=== PATIENT | female | born 1990 | race Two or more races ===

== ENCOUNTER 2020-02-21 11:08 | Outpatient (REF) | payer OTHER, SELFPAY | END 2020-02-21 11:09 | disposition home or self-care (01) | LOC: HO.LAB 11:08 | PROVIDERS: Visit Provider Internal Medicine | DX: Z20.828 Contact with and (suspected) exposure to other viral communicable diseases (principal) | CPT/HCPCS: C9803; U0003 ==

== ENCOUNTER 2020-11-15 11:45 | Emergency (ER) | payer OTHER, SELFPAY ==
[2020-11-15 12:00] VITALS: BP 106/64; PULSE 67; RESP 16; TEMP 37.1; O2SAT 98; BMI 26.6
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
== END 2020-11-15 14:33 | disposition home or self-care (01) ==
PROVIDERS: Emergency Provider Emergency Medicine
DX: S39.012A Strain of muscle, fascia and tendon of lower back, initial encounter (principal); V43.52XA Car driver injured in collision with other type car in traffic accident, initial encounter; H61.22 Impacted cerumen, left ear; Y93.89 Activity, other specified; Y92.414 Local residential or business street as the place of occurrence of the external cause; Y99.9 Unspecified external cause status
CPT/HCPCS: 69209; 99283

== ENCOUNTER 2024-12-07 09:53 | Emergency (ER) | payer OTHER, SELFPAY ==
--- NOTE | ~2024-12-07 | US_ITS ---
EXAMINATION: US RETROPERITONEAL LIMITED (RENAL ONLY) CLINICAL INFORMATION: Dark urine. Bilateral flank pain.. COMPARISON: None available. TECHNIQUE: Real-time ultrasound kidneys using grayscale technique. FINDINGS: RIGHT KIDNEY: 9 x 4 x 4 cm (SAG x AP x TRV). Volume: 79 cc. Normal echotexture. Normal renal cortical thickness. No hydronephrosis. No gross solid or cystic lesion. LEFT KIDNEY: 10 x 5 x 5 cm (SAG x AP x TRV). Volume: 134 cc. Normal echotexture. Normal renal cortical thickness. No hydronephrosis. No gross solid or cystic lesion. US/US renal BI IMPRESSION: No hydronephrosis. Normal exam.. Electronically signed by: Jimbo Ortiz MD 12/07/2024 11:58 AM EDT
[2024-12-07 10:02] VITALS: BP 103/68; PULSE 73; RESP 18; TEMP 36.6; O2SAT 98; BMI 28.5
--- NOTE | 2024-12-07 10:40 | ED_ITS ---
HPI - General Adult General Chief complaint: General Medical Stated complaint: Pain R side Time Seen by Provider: 12/07/24 10:13 Source: patient and old records reviewed Mode of arrival: ambulatory Limitations: no limitations History of Present Illness ED Provider: SUSANNE GAN narrative: 33 yo female with no PMH who has been dealing with this vague posterior thoracic back pain that wraps around. She notes she feels a dull pain during the day but at night it wakes her up. She was on abx about 2 weeks ago per UC had UTI they just prescribed her bactrim which she has not taken. She denies travel, uses mirena, no hx of renal colic, VTE. 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 She states it wakes her up and it mostly present at night. MD complaint: back pain, URI Onset (ago): week(s) (3) Location: back Radiation: abdomen Severity: moderate Quality: aching Pain Consistency: intermittent Relieving factors: none Exacerbating factors: none Associated symptoms: cough and other Treatments prior to arrival: none Related Data Previous Rx's ?Medication ?Instructions ?Recorded azithromycin 250 mg tablet See Rx Instructions PO .COM PLEX #6 12/07/24 tabs cephalexin 500 mg capsule 500 mg PO BID 7 days #14 cap s 12/07/24 cyclobenzaprine 10 mg tablet 10 mg PO TID PRN muscle s pasm #14 12/07/24 tabs fluconazole 150 mg tablet 150 mg PO Q3D 2 doses #2 tab s 12/07/24 Allergies Allergy/AdvReac Type Severity Reaction Status Date / Time No Known Allergies Allergy Verified 12/07/24 10:06 Review of Systems 2 Review of Systems: Constitutional : No Fever, No Chills, pos Fatigue ENT/Mouth : No sore throat, No Rhinorrhea Eyes: No Eye Pain, No Swelling, No Redness Cardiovascular : No Chest Pain, No SOB, No Dyspnea on Exertion Respiratory : pos Cough, No Sputum Gastrointestinal : No Nausea, No Vomiting, No Diarrhea, No abdominal Pain Genitourinary : No Dysuria, pos Urinary Frequency, No Hematuria, Musculoskeletal : No joint pain, No Myalgias, No Joint Swelling, pos back pain Skin : No Skin Lesions, No rash Neuro : No Weakness, No Numbness, No Dizziness, positive Headache All other systems reviewed and are negative [facility] Social History Social History Advance Directives: No Advance Directives Information Provided: Yes Do you have a plan to hurt others: No Plan Physical Exam ED Vital Signs: Vital Signs - 24 hr 12/07/24 10:02 12/07/24 12:02 Temperature 98 F Pulse Rate 73 77 Respiratory Rate 18 17 Blood Pressure 103/68 101/64 Pulse Oximetry 98 99 Oxygen Delivery Method Room Air Room Air BMI result Body Mass Index 28.5 Appearance: Alert. Oriented X3. No acute distress. Eyes: Pupils equal, round and reactive to light. ENT: Pharynx normal. Neck: Normal inspection. Neck supple. CVS: Normal heart rate and rhythm. Pulses normal. Respiratory: No respiratory distress. Breath sounds diminished R lower lobe Abdomen: Soft and nontender. Back: ttp along paraspinals bilaterally Skin: Skin warm and dry. Normal skin color. Extremities: No lower extremity edema. Neuro: Oriented X 3. No motor deficit. No sensory deficit. CN2-12 intact Medical Decision Making Medical Decision Making [facility] Narrative: 33 yo female with no PMH here with c/o not feeling great, reported UTI, darker urine , bilateral lower back pain but no fevers, she has some mild URI - she is PERC negative at this time. I canot reproduce her pain. At this time doubt VTE, will obtain UA, labs, CXR for pneumonia/effusion, renal study for stones/hydro. I suspect viral syndrome, strain, renal colic, URI Differential Diagnosis Differential Diagnoses: The differential diagnosis associated with the presentation includes viral syndrome, strain, renal colic, URI Admission/Observation Consideration of admission/observation: Escalation of care including admission/observation considered will start on oral abx and instruct her to return for worsening symptoms or concerns Lab Data [facility] Lab Attestation statement: I reviewed the patient's lab results. 12/07/24 10:54 12/07/24 10:53 Labs: Lab Results 12/07/24 12/07/24 12/07/24 Range/Units 10:53 10:54 12:12 WBC 8.2 (4.8-10.8) X10*3/uL RBC 4.62 (4.20-5.50) X10*6/uL Hgb 14.4 (12.0-16.0) g/dl Hct 41.6 (37.0-47.0) % MCV 90.0 (80.0-98.0) fL MCH 31.2 (27.0-33.0) pg MCHC 34.6 (31.0-35.0) g/dl RDW 12.6 (11.0-16.0) % Plt Count 258 (160-400) X10*3/uL MPV 10.0 (9.4-12.3) fL Immature Gran % (Auto) 0.4 (0.0-0.4) % Neut % (Auto) 60.9 (45-73) % Lymph % (Auto) 30.5 (20-40) % Henry % (Auto) 6.8 (2-11) % Eos % (Auto) 1.0 (0-4) % Baso % (Auto) 0.4 (0-2) % Lymph # (Auto) 2.5 (1.2-4.9) X10*3/uL Henry # (Auto) 0.6 (0.1-1.2) X10*3/uL Eos # (Auto) 0.1 (0.0-0.4) X10*3/uL Baso # (Auto) 0.0 (0.0-0.2) X10*3/uL Abs Immat Gran (auto) 0.03 (0.00-0.03) X10*3/uL Absolute Neuts (auto) 5.0 (2.0-8.3) x10*3/uL Absolute Nucleated RBC 0.000 (0.0-0.012) X10*3/uL Nucleated RBC % (auto) 0.0 (0.0-0.2) /100WBC Sodium 139 (135-145) mmol/L Potassium 4.3 (3.3-5.1) mmol/L Chloride 103 (96-108) mmol/L Carbon Dioxide 30 H (22-29) mmol/L Anion Gap 10 L (12-20) BUN 11 (9-16) mg/dL Creatinine 0.71 (0.5-1.4) mg/dL Estim Creat Clear Calc 128.7 Estimated GFR > 60 Random Glucose 90 (60-115) mg/dL Calcium 9.3 (8.4-10.2) mg/dL Magnesium 2.1 (1.6-2.6) mg/dL Total Bilirubin 0.8 (0.0-1.0) mg/dL AST 22 (5-31) U/L ALT 25 (0-31) U/L Alkaline Phosphatase 71 (39-117) U/L Total Protein 7.8 (6.5-8.0) g/dL Albumin 4.7 (3.5-5.0) g/dL Lipase 29 (8-78) U/L Urine Color Yellow Urine Appearance Clear Urine pH 6.0 (5.0-9.0) Ur Specific [place] 1.015 (1.005-1.025) Urine Protein Negative (Neg-Trace) mg/dL Urine Glucose (UA) Negative (Negative) mg/dL Urine Ketones Negative (Negative) mg/dL Urine Blood Negative (Negative) Urine Nitrite Negative (Negative) Ur Leukocyte Esterase Moderate (2+) H (Negative) Urine RBC 0-2 (0-2) /HPF Urine WBC 6-10 H (0-5) /HPF Ur Squamous Epith Cells 6-10 (0-2) /HPF Urine Bacteria 1+ (None Seen) Hyaline Casts 0-2 (0-2) /LPF Urine Test NEGATIVE (NEGATIVE) Independent Interpretation I performed an independent interpretation of an: Plain X-Ray (RLL opacity) and Ultrasound (normal ) Radiology Impression Discussion of test interpretation with radiology: I have reviewed the radiologist's reading. External Record Review External record reviewed: Outpatient record Prescription Management I considered prescription management with: Antibiotic and Other Discharge Plan Discharge Clinical Impression: Bilateral flank pain CAP (community acquired pneumonia) Qualifiers: Laterality: right Lung location: unspecified part of lung Qualified Code(s): J 18.9 - Pneumonia, unspecified organism Patient Disposition: Home, Self-Care Instructions: Community Acquired Pneumonia (ED), Flank Pain (ED) Additional Instructions: no UTI labs reassuring Ultrasound normal of both kidneys chest xray abnormal - pneumonia noted will start on oral antibiotics - finish all antibiotics, repeat Chest xray in 6 weeks with your doctor for resolution return for any worsening symptoms or concerns On a cephalosporin?antibiotic, softer bowel movements are to be expected. Call your provider if you move your bowels more than 4 times a day, your bowel movements are almost all liquid, or you get a rash.?? On azithromycin, call your provider if you develop new ringing in your ears, new problems hearing, dizziness, palpitations, abdominal pain, nausea, or diarrhea. Prescriptions: New cyclobenzaprine 10 mg tablet 10 mg PO TID PRN (Reason: muscle spasm) Qty: 14 0RF azithromycin 250 mg tablet See Rx Instructions .ROUTE .COMPLEX Qty: 6 0RF Rx Instructions: For 250 mg dose pack: take 500 mg today (day 1), then 250 mg for 4 days (days 2-5) fluconazole 150 mg tablet 150 mg PO Q3D Qty: 2 0RF Rx Instructions: may repeat second dose 72 hrs after first dose if symptoms persist cephalexin 500 mg capsule 500 mg PO BID 7 Days Qty: 14 0RF Stand Alone Forms: Work/School Release Print Language: Serbian
[2024-12-07 11:03] LABS: Hematocrit 41.6 % (37.0-47.0); Hemoglobin 14.4 g/dl (12.0-16.0); Mean Corpuscular Volume 90.0 fL (80.0-98.0); Platelet Count 258 X10*3/uL (160-400); Red Blood Count 4.62 X10*6/uL (4.20-5.50)
[2024-12-07 11:15] LABS: Alanine Aminotransferase 25 U/L (0-31); Albumin Level 4.7 g/dL (3.5-5.0); Alkaline Phosphatase 71 U/L (39-117); Anion Gap 10 (12-20); Aspartate Amino Transferase 22 U/L (5-31); Blood Urea Nitrogen 11 mg/dL (9-16); Calcium 9.3 mg/dL (8.4-10.2); Carbon Dioxide 30 mmol/L (22-29); Chloride 103 mmol/L (96-108); Creatinine Clr Calc Pharmacy 128.7; Estimated Glomerular Filt Rate > 60; Lipase 29 U/L (8-78); Magnesium 2.1 mg/dL (1.6-2.6); Potassium 4.3 mmol/L (3.3-5.1); Sodium 139 mmol/L (135-145); Total Protein 7.8 g/dL (6.5-8.0)
[2024-12-07 12:02] VITALS: BP 101/64; PULSE 77; RESP 17; O2SAT 99
[2024-12-07 12:20] LABS: Appearance Urine Clear; Glucose Urine UA Negative (Negative); PH 6.0 (5.0-9.0); Specific Gravity - Urine 1.015 (1.005-1.025); UMIC TRIGGER UACC YES
[2024-12-07 12:23] LABS: UPreg QC Valid YES
[2024-12-07 12:25] LABS: UACC Culture Trigger YES
--- OUTSIDE RECORDS SUMMARY | 2024-12-07 12:29 | XMS_ITS | Clinical Summary ---
Author Organization [employer] Address [address] [place] [address] Care Team Providers Care Dent Remover Name Role Phone Unavailable Primary Care Provider Unavailabl e Allergies No known active allergies Medications Levonorgestrel 20 MCG/DAY intrauterine device 1 Each by Intrauterine route once. 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 Encounters Date Type Department Care Team Description 10/06/2024 2:00 PM EDT Office Visit [facility] [address] [place] [address] Hui Yuen Dental caries (Primary Dx) 09/29/2024 2:15 PM EDT Office Visit [facility] [address] [place] [address] Hui Yuen Dental caries (Primary Dx); Gingival bleeding; Dental plaque; Missing teeth, acquired 09/24/2024 9:00 AM EDT Office Visit [facility] [address] [place] [address] Hui Yuen 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) 09/21/2024 1:00 PM EDT Office Visit [facility] [address] [place] [address] Domingo Javier DMD from Last 3 Months Social History Tobacco Use Types Packs/Day Years Used Date Smoking Tobacco: Never Smokeless Tobacco: Never Tobacco Cessation:Counseling Given: Not Answered Alcohol Use Standard Drinks/Week Comments Defer 0 (1 standard drink = 0.6 oz pur e alcohol) Comments Unknown Sex and Gender Information Value Date Recorded Sex Assigned at Female 01/14/2022 10:22 AM EDT Legal Sex Female 10:22 AM EDT Gender Identity Female 01/14/2022 10:22 AM EDT Sexual Orientation Straight 01/14/2022 10 :22 AM EDT Last Filed Vital Signs Vital Sign Reading Time Taken Comments Blood Pressure 92/62 10/06/2024 2:34 PM EDT Pulse 68 09/24/2024 9:22 AM EDT Temperature - - Respiratory Rate - - Oxygen Saturation - - Inhaled Oxygen Concentration - - Weight - - Height - - Body Mass Index - - Plan of Treatment Health Maintenance Due Date Last Done Comments Depression Screening 1990 HIV Screening 1990 SDOH Screening 1990 Disability Screening 1990 Alcohol/Substance Use Screening 2002 Family Planning (PISQ) 2005 Hepatitis C Screening 2008 Pap Smear 12/27/2011 Cervical Cancer Screening 2020 HPV/Cotest 2020 COVID-19 Vaccine ( season) 2024 Influenza Vaccine (#1) 2024 7, 03/08/2009, 03/08/2009 Dental Oral Exam 04/02/2025 09/29/2024, 08/18/2015 Dental Prophylaxis 04/02/2025 09/29/2024 Dental X-Ray: Bitewings 09/30/2025 09/30/19 25, 09/21/2024, 11/17/2018, Additional history exists Tobacco Screening 10/06/2025 10/06/2024 DTaP/Tdap/Td Vaccines (8 - Td or Tdap) 03/26/2027 03/26/2017, 06/16/2008, 03/22/2002, Additional history exists Dental X-Ray: Full Mouth 10/01/2027 025, 11/17/2018, 08/18/2015 Zoster Vaccines (1 of 2) 2040 RSV Patients and Patients Aged 60 years or older (1 - 1-dose 75+ series) 2065 HIB Vaccines Completed 04/05/1992, 06/16, 05/10/1991, Additional history exists IPV Vaccines Completed 07/08/1995, 09/15, 04/05/1992, Additional history exists Hepatitis B Vaccines Completed 09/05/1997, 07/08/1995, 02/03/1995 Meningococcal Vaccine Completed 06/16/2008 HPV Vaccines Completed 10/17/2008, 04/2008, 05/01/2007 Hepatitis A Vaccines Aged Out No long er eligible based on patient's age to complete this topic Meningococcal B Vaccine Aged Out No l onger eligible based on patient's age to complete this topic Pneumococcal Vaccine: Pediatrics (0 to 5 Years) and At-Risk Patients (6 to 49) Years Aged Out No longer eligible based on patient's age to complete this topic RSV under 20 months Aged Out No longe r eligible based on patient's age to complete this topic Rotavirus Vaccines Aged Out No longer eligible based on patient's age to complete this topic Procedures Procedure Name Priority Date/Time Associated Diagnosis Comments CASE PRESENTATION, DETAILED AND EXTENSIVE TREATMENT PLANNING Routine 10/06/2024 2:00 PM EDT 2 O RESIN-BASED COMPOSITE - 1 SURF, POSTERIOR Routine 10/06/2024 2:00 PM EDT Dental caries INTRAORAL - COMPLETE SERIES OF RADIOGRAPHIC IMAGES Routine 09/29/2024 2:15 PM EDT CASE PRESENTATION, DETAILED AND EXTENSIVE TREATMENT PLANNING Routine 09/29/2024 2:15 PM EDT ORAL HYGIENE INSTRUCTIONS Routine 09/29/2024 2:15 PM EDT Full PROPHYLAXIS - ADULT Routine 09/29/2024 2:15 PM EDT PERIODIC ORAL EVALUATION - ESTABLISHED PATIENT Routine 09/29/2024 2:15 PM EDT Dental caries Gingival bleeding Dental plaque Missing teeth, acquired 15 O COMPOSITE FILLING Routine 12:00 AM EDT CASE PRESENTATION, DETAILED AND EXTENSIVE TREATMENT PLANNING Routine 09/24/2024 9:00 AM EDT 19 DO RESIN-BASED COMPOSITE - 2 SURF, POSTERIOR Routine 09/24/2024 9:00 AM EDT 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
--- OUTSIDE RECORDS SUMMARY | 2024-12-07 12:29 | XMS_ITS ---
Author Name [facility] Organization Unknown Care Team Organization Name Specialty Phone Email Start Date End Da te [facility] JACOB CORAZON Primary Care 01/22/2022 4
--- OUTSIDE RECORDS SUMMARY | 2024-12-07 12:29 | XMS_ITS | Clinical Summary ---
Author Organization [facility] [address] [place] [address] [place] [phone] Phone Care Team Providers Care Auto Transmission Technician Name Role Phone Abi Cronin MD Primary Care Provider [phone] Allergies No known active allergies Medications levonorgestreL (MIRENA) 21 mcg/24hr (up to 8 yrs) 52 mg IUD 1 Each by Intrauterine route once. 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 Immunizations Name Administration Dates Next Due DTP 07/08/1995, 3,07/09/1991,05/10,03/08/1991 [id number] (Pentacel) 2mo to less than 5yo 04/05/1992,07/09/1991,05/10/1991,03/08 H1N1 Inj Preservative Free 03/08/2009 HPV, Quadrivalent 10/17/2008,06/16/2008,05/01/19 08 Hepatitis B Pediatric (Enger ix B; Recombivax HB) to less than 20 yo 09/05/1997,07/08/1995,02/03/1995 Influenza Quadravalent, MDCK , 0.5ml, preservative free (Flucelvax) 6mo and older 2016 Influenza trivalent, with pr eservative (Fluzone; Afluria) 6mo and older 03/08/2009,03/08/2009 MMR, measles mumps and rubel la Live (Priorix; M-M-R II) 12mo and older 02/03/1995,04/05/1992 Meningococcal MCV4P 06/16/2008 OPV 07/08/1995, 3,05/10/1991,03/08 Td Tetanus diptheria (Tdvax) 7yo and older 03/22/2002 Tdap Tetanus diptheria acell ular pertussis (Boostrix; Adacel) 7yo and older 03/26/2017,06/16/2008 Surgical History Surgery Date Site/Laterality Comments APPENDECTOMY 09/1994 PROCEDURE: HISTORICAL APPENDECTOMY Medical History Medical History Date Comments Acute suppurative otitis med ia without spontaneous rupture of eardrum DX:Acute suppurative otitis media without spontaneous rupture of eardrum Flu DX:Flu Varicella DX:Varicella Menarche onset at 12 yo DX:Menarche; COM MENT: -1; EDC 02/26/11 Family History Medical History Relation Name Comments No Known Problems Brother 1 half broth er from mother No Known Problems Brother 2 half broth er from fathers side No Known Problems Brother 3 half broth er from fathers side No Known Problems Brother 4 half broth er from fathers side No Known Problems Brother 5 half broth er from fathers side No Known Problems Brother 6 half broth er from fathers side No Known Problems Father No Known Problems Maternal Grandfather pt not sure of health hx, states ?heart problems Diabetes Maternal Grandmother pt stat es shes sick doesnt know what other health problems she has Hypertension Maternal Grandmother No Known Problems Mother No Known Problems Paternal Grandfather he alth hx not known Other: heart problems Paternal Grandmother hx not well known No Known Problems Sister half siste r from fathers side Relation Name Status Comments Brother 1 Alive Brother 2 Alive Brother 3 Alive Brother 4 Alive Brother 5 Alive Brother 6 Alive Father Alive Maternal Grandfather Alive Maternal Grandmother Alive Mother Alive Paternal Grandfather Paternal Grandmother Alive Sister Alive Social History Tobacco Use Types Packs/Day Years Used Date Smoking Tobacco: Never Smokeless Tobacco: Never Alcohol Use Standard Drinks/Week Comments Yes 0 (1 standard drink = 0.6 oz pur e alcohol) Comments Unknown Sex and Gender Information Value Date Recorded Sex Assigned at Not on file Legal Sex Female 10:48 PM EST Gender Identity Not on file Sexual Orientation Not on file Obstetrics History Last Filed Vital Signs Vital Sign Reading Time Taken Comments Blood Pressure 116/72 08/04/2023 4:54 PM EDT Pulse 121 08/04/2023 4:54 PM EDT Temperature - - Respiratory Rate - - Oxygen Saturation - - Inhaled Oxygen Concentration - - Weight 81.5 kg (179 lb 9.6 oz) 08/04/2023 4:54 P M EDT Height 172.7 cm (5' 8 ) 08/04/2023 4:54 PM EDT Body Mass Index 27.31 08/04/2023 4:54 PM EDT Plan of Treatment Health Maintenance Due Date Last Done Comments Cervical Cancer Screening: Pap Smear 10/02/2019 10/01/2016, 10/01/2016 Hepatitis C Screening 02/17/2022 Social Influencers of Health Screening 02/17/2022 Depression Screening 03/17/2024 COVID-19 Vaccine ( season) 2024 02/27/2021, 02/06/2021 Influenza Vaccine (#1) 2024 7, 03/08/2009, 03/08/2009, Additional history exists DTaP,Tdap,and Td Vaccines (9 - Td or Tdap) 03/26/2027 03/26/2017, 06/16/2008, 03/22/2002, Additional history exists HIB Vaccines Completed 04/05/1992, 06/16, 05/10/1991, Additional history exists MMR Vaccines Completed 02/03/1995, 04/05/1992 IPV Vaccines Completed 07/08/1995, 09/15, 04/05/1992, Additional history exists Hepatitis B Vaccines Completed 09/05/1997, 07/08/1995, 02/03/1995 Meningococcal ACWY Vaccine Completed 06/16/2008 HPV Vaccines Completed 10/17/2008, 04/2008, 05/01/2007 HIV Screening Completed 09/24/2016 Hepatitis A Vaccines Aged Out No long er eligible based on patient's age to complete this topic Meningococcal B Vaccine Aged Out No l onger eligible based on patient's age to complete this topic Pneumococcal Vaccine: Pediatrics (0 to 5 Years) and At-Risk Patients (6 to 49 Years) Aged Out No longer eligible based on patient's age to complete this topic RSV Immunization Patients Under 20 months Aged Out No longer eligible based on patient's age to complete this topic Varicella Vaccines Aged Out No longer eligible based on patient's age to complete this topic Procedures Procedure Name Priority Date/Time Associated Diagnosis Comments HPV Routine 10/01/2016 HIV SCREENING Routine 09/24/2016 from Last 3 Months or Most Recently Relevant to Health Maintenance Results * Cervical Cancer Screening: HPV (10/01/2016) Cervical Cancer Screening: HPV No interpretation , Abstracted us Historical Provider HEALTH MAINTENANCE Final Result * HIV Screening (09/24/2016) Pathologist [facility] HIV Screening Abstracted us Historical Provider HEALTH MAINTENANCE Final Result from Last 3 Months or Most Recently Relevant to Health Maintenance Care Teams Auto Transmission Technician Relationship Specialty Start Date End Date Abi Cronin MD [address] [place] [phone] PCP - General Internal Medicine 11/02/20
[2024-12-07 12:45] VITALS: BP 101/64; PULSE 77; RESP 17; TEMP 37.1; O2SAT 99
== END 2024-12-07 12:46 | disposition home or self-care (01) ==
PROVIDERS: Physician Assistant Medical; Emergency Provider Emergency Medicine
DX: J18.9 Pneumonia, unspecified organism (principal); R10.2 Pelvic and perineal pain; R05.9 Cough, unspecified; Z79.899 Other long term (current) drug therapy
CPT/HCPCS: 36415; 71046; 76775; 80053; 81001; 81025; 83690; 83735; 85025; 87086; 99283; 99284

== ENCOUNTER → 2024-12-07 10:35 | Outpatient (BNV) | payer OTHER, SELFPAY | PROVIDERS: Emergency Provider Emergency Medicine; Visit Provider Radiology Diagnostic Radiology | DX: R10.9 Unspecified abdominal pain (principal); R82.998 Other abnormal findings in urine; R05.9 Cough, unspecified | CPT/HCPCS: 71046; 76775 ==

== ENCOUNTER 2024-12-09 18:18 | Inpatient (IN) | payer OTHER, SELFPAY ==
--- NOTE | 2024-12-09 | ECG_ITS ---
Test Reason : cp Blood Pressure : */* mmHG Vent. Rate : 85 BPM Atrial Rate : 85 BPM P-R Int : 138 ms QRS Dur : 74 ms QT Int : 356 ms P-R-T Axes : 33 -5 -8 degrees QTcB Int : 423 ms Normal sinus rhythm Septal infarct , age undetermined Abnormal ECG No previous ECGs available Referred By: Generic ED Physician Electronically Signed By: Shashank Nelson
--- NOTE | ~2024-12-09 | US_ITS ---
CLINICAL HISTORY: cholecystitis US abdomen limited Comparison: None provided Findings: The liver is incompletely visualized on this examination. The visualized portion of the liver appears normal in contour and echotexture. No intrahepatic biliary dilation identified. The common duct is 3.2 mm in diameter. The gallbladder is normal. The main portal vein is antegrade. The right kidney is incompletely visualized on this examination. No right hydronephrosis identified on the provided images. No ascites. IMPRESSION: 1. No sonographic evidence for acute cholecystitis. This document has been electronically signed by: Jason Carrillo MD on 12/09/2024 23:05:37
--- NOTE | ~2024-12-09 | CT_ITS ---
CLINICAL HISTORY: PE CT angiography chest using contrast. 3-D postprocessing Comparison: CR/SR - XR CHEST 2 VIEWS - 12/07/24 10:51 EDT Findings: No pulmonary embolism. No thoracic aorta aneurysm. Heart size within normal limits. No focal pulmonary consolidation, pneumothorax, or pleural effusion. No acute fractures. Impression: 1. Negative for pulmonary embolism. No focal pulmonary consolidation, pneumothorax, or pleural effusion. This document has been electronically signed by: Jason Carrillo MD on 12/10/2024 00:05:20
--- NOTE | ~2024-12-09 | FL_ITS ---
EXAMINATION: FL GUIDANCE ONLY HISTORY: ERCP COMPARISON: Correlation is made with a CT of the abdomen with contrast dated 12/09/2024. TECHNIQUE: Fluoroscopy time: 6 minutes, 21.7 seconds. Cumulative Dose: 7 7.923 mGy. DAP: 3 3.896 Gym2 Images: 7. FINDINGS: Multiple fluoroscopic spot films from an ERCP are submitted. The common bile duct is not dilated. The visualized biliary radicals are normal in caliber. No definite filling defects are seen on the images provided. FL/FL guidance in OR IMPRESSION: Fluoroscopy during procedure. Please see procedure report for additional information. Electronically signed by: Elbert Andrade MD 12/10/2024 02:31 PM EDT
--- NOTE | ~2024-12-09 | CT_ITS ---
CLINICAL HISTORY: transaminitis CT abdomen and pelvis with contrast Comparison: Comparison is made to gallbladder ultrasound examination dated 12/09/2024. Findings: Small gallstones are visualized within the gallbladder lumen. No CT evidence for acute cholecystitis. A radiopaque calculus is identified near the ampulla, visualized on coronal image number 35 of series 19. The solid organs are within normal limits for appearance. No significant intrahepatic or extrahepatic biliary dilation identified. No hydronephrosis or hydroureter. No bowel obstruction, pneumoperitoneum, or pneumatosis. Radiopaque T-shaped intrauterine device in place. No bladder wall thickening. Nonvisualization of the appendix. No acute fracture visualized. IMPRESSION: 1. Calculus visualized near the ampulla, suggesting choledocholithiasis. No significant intrahepatic or extrahepatic biliary dilation identified. 2. Small gallstones present within the gallbladder lumen. No CT evidence for acute cholecystitis. This document has been electronically signed by: Jason Carrillo MD on 12/09/2024 23:59:29
--- NOTE | 2024-12-09 18:32 | ED.GENADULT ---
HPI - General Adult General Chief complaint: General Medical Stated complaint: cp (pneumonia) Time Seen by Provider: 12/09/24 21:17 Related Data Home Medications ?Medication ?Instructions ?Recorded ?Confirmed No Known Home Meds 12/10/24 12/10/24 Allergies Allergy/AdvReac Type Severity Reaction Status Date / Time No Known Allergies Allergy Verified 12/09/24 18:39 [facility] Past Medical History Surgical History (Updated 12/10/24 @ 10:30 by Yasemin Leggett RN) Hx of appendectomy History of ERCP Social History Social History Household Members: Significant Other and Children Housing: House Patient Tobacco Use Status: Never used Tobacco Smoked in Last 30 Days: No Use of substances other than those prescribed or required for medical reasons: No Currently Displaying Signs/Symptoms of Drug Intoxication Withdrawal: No Have you been hit, kicked, punched, or otherwise hurt by someone within the past year? If so, by whom?: No Are you DNR?: No Advance Directives: No Advance Directives Information Provided: No Do you have a plan to hurt others: No Plan Recently lost weight without trying: Unsure Patient : No service: No Physical Exam ED Vital Signs: Vital Signs - 24 hr 12/09/24 22:41 12/10/24 01:48 Temperature 97.9 F Pulse Rate 86 63 Respiratory Rate 20 16 Blood Pressure 110/74 103/64 Pulse Oximetry 97 99 Oxygen Delivery Method Room Air Room Air BMI result Body Mass Index 29.1 Course Course Course Narrative: This is an RME: Additional HPI, ROS, PE not included below will be deferred to primary provider. RME assessment and note performed by: Abby Lees PA-C This is a [id number]-female who presents to the ER accompanied by her , with concerns of shortness of breath and pleuritic CP Reports that she was seen on 12/07 was told she had pneumonia. Had an asthma attack later on that day and went to [facility]. Reports that she went to her PCP. Reports that her PCP sent her for a CT scan. No cough or fevers. Has mirena, no recent travel, surgeries or hospitalizations. Plan: Labs, further ER eval needed > duplicate chart. Medications Administered Generic Name Dose Route Start Last Admin Trade Name Freq PRN Reason Stop Dose Admin Acetaminophen 650 mg 12/10/24 01:49 12/10/24 17:28 Acetaminophen 325 Mg Tablet PO 650 mg Q6H PRN Administration Pain, Mild 1-3,fever,headache Ceftriaxone Sodium 1 gm 12/10/24 02:00 12/10/24 02:25 Ceftriaxone Sodium 1 Gm Vial IVPUSH 1 gm Q24H ARNULFO Administration Dextrose/Sodium Chloride 1,000 mls @ 100 mls/hr 12/10/24 02:00 12/10/24 14:53 D5ns IVCONT 100 mls/hr .Q10H ARNULFO Administration Metronidazole 500 mg in 100 mls @ 100 mls/hr 12/10/24 02:00 12/10/24 18:29 Flagyl IV Infused Q8H ARNULFO Infusion Sodium Chloride 3 ml 12/10/24 08:00 12/10/24 17:03 0.9 % Sodium Chloride Flush 3 Ml Syringe IVFLUSH 3 ml QSHIFT ARNULFO Administration Discontinued Medications Generic Name Dose Route Start Last Admin Trade Name Freq PRN Reason Stop Dose Admin Enoxaparin Sodium 40 mg 12/10/24 02:00 12/10/24 02:31 Enoxaparin Sodium 40 Mg/0.4 Ml Syringe SUBCUT Not Given Q24H ARNULFO Indomethacin 100 mg 12/10/24 12:00 12/10/24 14:44 Indomethacin 50 Mg Supp.Rect MS 12/10/24 12:01 Not Given PRE PROCEDURE ONE Iohexol 85 ml 12/09/24 22:38 12/09/24 22:38 Iohexol 350 Mg/Ml 100 Ml Infus..Btl IV 12/09/24 22:39 85 ml ONCE ONE Administration Medical Decision Making Lab Data 12/10/24 04:42 12/10/24 04:42 Labs: Lab Results 12/09/24 Range/Units 19:04 WBC 9.0 (4.8-10.8) X10*3/uL RBC 4.71 (4.20-5.50) X10*6/uL Hgb 14.4 (12.0-16.0) g/dl Hct 42.6 (37.0-47.0) % MCV 90.4 (80.0-98.0) fL MCH 30.6 (27.0-33.0) pg MCHC 33.8 (31.0-35.0) g/dl RDW 12.8 (11.0-16.0) % Plt Count 270 (160-400) X10*3/uL MPV 10.0 (9.4-12.3) fL Immature Gran % (Auto) 0.4 (0.0-0.4) % Neut % (Auto) 64.8 (45-73) % Lymph % (Auto) 25.0 (20-40) % [place] % (Auto) 7.5 (2-11) % Eos % (Auto) 1.9 (0-4) % Baso % (Auto) 0.4 (0-2) % Lymph # (Auto) 2.3 (1.2-4.9) X10*3/uL [place] # (Auto) 0.7 (0.1-1.2) X10*3/uL Eos # (Auto) 0.2 (0.0-0.4) X10*3/uL Baso # (Auto) 0.0 (0.0-0.2) X10*3/uL Abs Immat Gran (auto) 0.04 H (0.00-0.03) X10*3/uL Absolute Neuts (auto) 5.9 (2.0-8.3) x10*3/uL Absolute Nucleated RBC 0.000 (0.0-0.012) X10*3/uL Nucleated RBC % (auto) 0.0 (0.0-0.2) /100WBC Sodium 142 (135-145) mmol/L Potassium 4.1 (3.3-5.1) mmol/L Chloride 104 (96-108) mmol/L Carbon Dioxide 29 (22-29) mmol/L Anion Gap 13 (12-20) BUN 9 (9-16) mg/dL Creatinine 0.68 (0.5-1.4) mg/dL Estim Creat Clear Calc 135.7 Estimated GFR > 60 Random Glucose 90 (60-115) mg/dL Calcium 9.3 (8.4-10.2) mg/dL Total Bilirubin 0.8 (0.0-1.0) mg/dL Direct Bilirubin 0.3 (0.0-0.5) mg/dL AST 400 H (5-31) U/L ALT 597 H (0-31) U/L Alkaline Phosphatase 143 H (39-117) U/L Total Protein 7.4 (6.5-8.0) g/dL Albumin 4.6 (3.5-5.0) g/dL Lipase 39 (8-78) U/L Beta HCG, Quant < 2 mIU/mL COVID-19 (MADELINE) Negative (Negative) COVID-19 Clin Com See Note Influenza Type A (EMILY) Negative (Negative) Influenza Type B (EMILY) Negative (Negative) Influenza A & B Note See Note Discharge Plan Discharge Clinical Impression: Choledocholithiasis Patient Disposition: Admitted As Inpatient Interventions: Admission Worksheet (ED) Last Done: 12/10/24 08:01 Discharge Date/Time: 12/10/24 08:27
[2024-12-09 18:33] VITALS: BP 123/73; PULSE 94; RESP 18; TEMP 36.8; O2SAT 96; BMI 29.1
[2024-12-09 19:09] LABS: MANUAL DIFF FLAG NO
[2024-12-09 19:15] LABS: Hematocrit 42.6 % (37.0-47.0); Hemoglobin 14.4 g/dl (12.0-16.0); Imm Gran Abs Auto 0.04 X10*3/uL (0.00-0.03); Imm Gran Pct Auto 0.4 % (0.0-0.4); Lymphocytes Absolute Auto 2.3 X10*3/uL (1.2-4.9); Mean Corpuscular HGB Conc 33.8 g/dl (31.0-35.0); Mean Corpuscular Hemoglobin 30.6 pg (27.0-33.0); Mean Corpuscular Volume 90.4 fL (80.0-98.0); NRBC Abs Auto 0.000 X10*3/uL (0.0-0.012); NRBC Pct Auto 0.0 /100WBC (0.0-0.2); Platelet Count 270 X10*3/uL (160-400); Red Blood Count 4.71 X10*6/uL (4.20-5.50); White Blood Count 9.0 X10*3/uL (4.8-10.8)
[2024-12-09 19:23] LABS: COVID-19 Test Negative (Negative); IDNOW Serial# 08D9AD1C
[2024-12-09 19:24] LABS: IDNOW Serial# 58CA691E; Influenza B2 Negative (Negative)
[2024-12-09 19:28] LABS: Alanine Aminotransferase 597 U/L (0-31); Albumin Level 4.6 g/dL (3.5-5.0); Alkaline Phosphatase 143 U/L (39-117); Anion Gap 13 (12-20); Aspartate Amino Transferase 400 U/L (5-31); Blood Urea Nitrogen 9 mg/dL (9-16); Calcium 9.3 mg/dL (8.4-10.2); Carbon Dioxide 29 mmol/L (22-29); Chloride 104 mmol/L (96-108); Creatinine Clr Calc Pharmacy 135.7; Estimated Glomerular Filt Rate > 60; Potassium 4.1 mmol/L (3.3-5.1); Sodium 142 mmol/L (135-145); Total Protein 7.4 g/dL (6.5-8.0)
--- OUTSIDE RECORDS SUMMARY | 2024-12-09 21:11 | XMS_ITS | Clinical Summary ---
Author Organization [facility] [address] [place] [address] [place] [address] Phone Care Team Providers Care Web Portal Developer Name Role Phone Abi Cronin MD Primary Care Provider [phone] Allergies No known active allergies Medications levonorgestreL (MIRENA) 21 mcg/24hr (up to 8 yrs) 52 mg IUD 1 Each by Intrauterine route once. 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 Encounters Date Type Department Care Team Description 12/09/2024 4:30 PM EDT Office Visit Adult Medicine [address] [phone] Yessica Saldivar PA Pneumonia of right middle lobe due to infectious organism (Primary Dx); Chest pain, unspecified type; Shortness of breath 12/08/2024 Telephone Adult Medicine [address] [phone] Abi Cronin MD from Last 3 Months Immunizations Name Administration Dates Next Due DTP 07/08/1995, 3,07/09/1991,05/10,03/08/1991 [id number] (Pentacel) 2mo to less than 5yo 04/05/1992,07/09/1991,05/10/1991,03/08 [...] Not Answered Alcohol Use Standard Drinks/Week Comments Yes 0 (1 standard drink = 0.6 oz pur e alcohol) Comments Unknown Sex and Gender Information Value Date Recorded Sex Assigned at Not on file Legal Sex Female 10:48 PM EST Gender Identity Not on file Sexual Orientation Not on file Obstetrics History Last Filed Vital Signs Vital Sign Reading Time Taken Comments Blood Pressure 90/56 12/09/2024 4:38 PM EDT Pulse 94 12/09/2024 4:38 PM EDT Temperature 36.1 C (97 F) 12/09/2024 4:38 PM EDT Respiratory Rate 16 12/09/2024 4:38 PM EDT Oxygen Saturation - - Inhaled Oxygen Concentration - - Weight 86.6 kg (191 lb) 12/09/2024 4:38 PM EDT Height 174 cm (5' 8.5 ) 12/09/2024 4:38 PM EDT Body Mass Index 28.62 12/09/2024 4:38 PM EDT Plan of Treatment Health Maintenance [...] 03/26/2027 03/26/2017, 06/16/2008, 03/22/2002, Additional history exists RSV Immunization Adult Patients (1 - 1-dose 75+ series) 2065 HIB [...] Results * Cervical Cancer Screening: HPV (10/01/2016) Pathologist [facility] Cervical Cancer Screening: HPV No interpretation , Abstracted [facility] Provider HEALTH MAINTENANCE Final Result * HIV Screening (09/24/2016) [facility] HIV Screening Abstracted [facility] Provider HEALTH MAINTENANCE Final Result from Last 3 Months or Most Recently Relevant to Health Maintenance Insurance MEDICAID - [place] Care Teams Web Portal Developer Relationship Specialty Start Date End Date Abi Cronin MD [address] [place] [address] PCP - General Internal Medicine 11/02/20
--- OUTSIDE RECORDS SUMMARY | 2024-12-09 21:11 | XMS_ITS | Clinical Summary ---
Author Organization [employer] Address [address] [place] [address] Care Team Providers Care Associate Dean Name Role Phone Unavailable Primary Care Provider Unavailabl e Allergies No known active allergies Medications Levonorgestrel 20 MCG/DAY intrauterine device 1 Each by Intrauterine route once. 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
--- OUTSIDE RECORDS SUMMARY | 2024-12-09 21:12 | XMS_ITS | Encounter Summary ---
Author Organization [facility] Address [address] [place] [address] Care Team Providers Care Director Metabolism Name Role Phone Abi Cronin MD Primary Care Provider [phone] Reason for Visit * Reason Onset Date Comments Cough 12/08/2024 Shortness of Breath 12/08/2024 Encounter Details Date Type Department Care Team (Late st Contact Info) Description 12/08/2024 Telephone Adult Medicine [facility] [address] [place] [address] Abi Cronin MD [address] [place], [place] Social History Tobacco Use Types Packs/Day Years Used Date Smoking Tobacco: Never Smokeless Tobacco: Never Alcohol Use Standard Drinks/Week Comments Yes 0 (1 standard drink = 0.6 oz pur e alcohol) Comments Unknown Sex and Gender Information Value Date Recorded Sex Assigned at Not on file Legal Sex Female 10:48 PM EST Gender Identity Not on file Sexual Orientation Not on file documented as of this encounter Progress Notes * Josette Scales RN - 12/08/2024 10:13 AM EDT An appointment was made for her to be seen in the office tomorrow at 4:30 pm with Yessica Saldivar and she is in agreement with this plan. She was instructed to go to the ER if she develops any new or worsening symptoms including but not limited to chest pain and or shortness of breath. * Nicole Nelson - 12/08/2024 9:22 AM EDT Patient call requires triage: Symptoms patient is presenting: Patient was diagnosed with Pneumonia and had a really bad attack last night to where she can't breath and her chest feels like its going to explode. She states that this normally happens at night and she's scared its going to happen again. She did start taking the antibiotics. How long has patient had these symptoms?: 1 month For ALL patients calling to schedule any appointment (routine, sick visit, follow up, consult, etc.) in the outpatient setting please ask the following questions: Do you have fever of higher than 101, sore throat with difficulty swallowing or severe shortness ofbreath? no If YES to any of these above symptoms, send a message to triage and do not book. Red dot. If no, an audio or video visit should be booked. Have you had close contact with someone with Coronavirus in the last 14 days? no Have you traveled abroad? no Have you traveled recently to another state outside of [place], [place], [place], [place], [place], [place], [place]? no o If yes, did you quarantine for 14 days or have a negative covid test? no If yes to any of the above, patient is not to be scheduled in office until after 14 day quarantine or negative covid test. If pain or injury related was it due to an accident at work or from a motor vehicle accident? If yes, date of accident/Injury: No If yes, gather 3rd libertarian insurance information Third Constitution Party Information: not applicable PCP: Abi Cronin MD Payor: / No coverage found. documented in this encounter Plan of Treatment Not on file documented as of this encounter Visit Diagnoses Not on filedocumented in this encounter Care Teams Director Metabolism Relationship Specialty Start Date End Date Abi Cronin MD [address] [place] [address] PCP - General Internal Medicine 11/02/20 documented as of this encounter
--- NOTE | 2024-12-09 21:37 | ED_ITS ---
HPI - General Adult General Chief complaint: General Medical Stated complaint: cp (pneumonia) Time Seen by Provider: 12/09/24 21:17 Source: patient Mode of arrival: ambulatory Limitations: no limitations History of Present Illness ED Provider: Dr. Winston [facility] narrative: 33-year-old female presented hospital today for right upper quadrant pain left upper quadrant pain that radiates into her chest. Patient stated that she was recently diagnosed here with pneumonia on Friday. She went to [facility] on Friday night for nausea and vomiting. She states she started having chest pain where she can not breathe. The patient was sent to the ER for evaluation of a CAT scan by her PCP. Patient denies any coughing denies any productive sputum. Denies any shortness of breath. Clinically she does not have pneumonia. Related Data Previous Rx's ?Medication ?Instructions ?Recorded azithromycin 250 mg tablet See Rx Instructions PO .COM PLEX #6 12/07/24 tabs cephalexin 500 mg capsule 500 mg PO BID 7 days #14 cap s 12/07/24 cyclobenzaprine 10 mg tablet 10 mg PO TID PRN muscle s pasm #14 12/07/24 tabs fluconazole 150 mg tablet 150 mg PO Q3D 2 doses #2 tab s 12/07/24 Allergies Allergy/AdvReac Type Severity Reaction Status Date / Time No Known Allergies Allergy Verified 12/09/24 18:39 Review of Systems 2 Review of Systems: Pertinent review of systems as mentioned in HPI. All other system otherwise negative. [facility] Past Medical History [facility] Narrative: Medical history as mentioned in HPI Social History Social History Smoked in Last 30 Days: No Use of substances other than those prescribed or required for medical reasons: No Advance Directives: No Advance Directives Information Provided: No Do you have a plan to hurt others: No Plan Physical Exam ED Exam Exam: General: Pleasant, no distress, interacting appropriately Head: Normacephalic, atraumatic ENT: oral mucosa moist, neck supple, no tracheal deviation Cardiovascular: regular rate, regular rhythm, no murmurs, rubbing, gallops Respiratory: CTAB, no wheeze, rales, rhonchi Gastrointestinal: Soft, non distended, right upper quadrant tenderness on palpation epigastric tenderness on palpation Extremities: No limb pain or swelling, no calf tenderness Neurological: Awake and alert, no facial droop noted Skin: Warm and dry Psychiatric: Appropriate mood and thoughts Vital Signs: Vital Signs - 24 hr 12/09/24 18:33 12/09/24 22:41 Temperature 98.3 F Pulse Rate 94 86 Respiratory Rate 18 20 Blood Pressure 123/73 110/74 Pulse Oximetry 96 97 Oxygen Delivery Method Room Air Room Air BMI result Body Mass Index 29.1 Medications Administered Discontinued Medications Generic Name Dose Route Start Last Admin Trade Name Humberto PRN Reason Stop Dose Admin Iohexol 85 ml 12/09/24 22:38 12/09/24 22:38 Iohexol 350 Mg/Ml 100 Ml Infus..Btl IV 12/09/24 22:39 85 ml ONCE ONE Administration Medical Decision Making Medical Decision Making [facility] Narrative: 33-year-old female presented hospital today for colicky pain. I suspect patient likely has gallstones based on her symptoms of nausea and vomiting does intermittent in nature. Patient is currently asymptomatic at this time. Patient stated that when the pain occurs she was hunched over in pain and she can not breathe. I do not think patient has pneumonia based on her clinical presentation. However given her symptoms we will obtain a CT chest and abdomen and pelvis. Per her PCP recommendation. Ultrasound will be obtained to assess for any signs of dilated CBD versus gallstone. Patient's CT chest did not show any sign of pneumonia did not show any signs of PE. Patient's abdomen and pelvis did show signs of choledocholithiasis with gallstone in her gallbladder. Patient's ultrasound did not show any sign of cholecystitis. No dilation of the CBD. Patient's lab work significant for transaminitis with elevated alk-phos. Lipase level is normal. Discussed the case with Dr. Hines the GI doctor. Recommends admission for ERCP. Differential Diagnosis Differential Diagnoses: The differential diagnosis associated with the presentation includes Choledocholithiasis, gallstone, biliary colic, cholecystitis, PE Consult Healthcare Provider Management of the patient was discussed with: Testing Specialist (Dr. Hines) Lab Data [facility] Lab Attestation statement: I reviewed the patient's lab results. 12/09/24 19:04 12/09/24 19:04 Labs: Lab Results 12/09/24 Range/Units 19:04 WBC 9.0 (4.8-10.8) X10*3/uL RBC 4.71 (4.20-5.50) X10*6/uL Hgb 14.4 (12.0-16.0) g/dl Hct 42.6 (37.0-47.0) % MCV 90.4 (80.0-98.0) fL MCH 30.6 (27.0-33.0) pg MCHC 33.8 (31.0-35.0) g/dl RDW 12.8 (11.0-16.0) % Plt Count 270 (160-400) X10*3/uL MPV 10.0 (9.4-12.3) fL Immature Gran % (Auto) 0.4 (0.0-0.4) % Neut % (Auto) 64.8 (45-73) % Lymph % (Auto) 25.0 (20-40) % [place] % (Auto) 7.5 (2-11) % Eos % (Auto) 1.9 (0-4) % Baso % (Auto) 0.4 (0-2) % Lymph # (Auto) 2.3 (1.2-4.9) X10*3/uL [place] # (Auto) 0.7 (0.1-1.2) X10*3/uL Eos # (Auto) 0.2 (0.0-0.4) X10*3/uL Baso # (Auto) 0.0 (0.0-0.2) X10*3/uL Abs Immat Gran (auto) 0.04 H (0.00-0.03) X10*3/uL Absolute Neuts (auto) 5.9 (2.0-8.3) x10*3/uL Absolute Nucleated RBC 0.000 (0.0-0.012) X10*3/uL Nucleated RBC % (auto) 0.0 (0.0-0.2) /100WBC Sodium 142 (135-145) mmol/L Potassium 4.1 (3.3-5.1) mmol/L Chloride 104 (96-108) mmol/L Carbon Dioxide 29 (22-29) mmol/L Anion Gap 13 (12-20) BUN 9 (9-16) mg/dL Creatinine 0.68 (0.5-1.4) mg/dL Estim Creat Clear Calc 135.7 Estimated GFR > 60 Random Glucose 90 (60-115) mg/dL Calcium 9.3 (8.4-10.2) mg/dL Total Bilirubin 0.8 (0.0-1.0) mg/dL Direct Bilirubin 0.3 (0.0-0.5) mg/dL AST 400 H (5-31) U/L ALT 597 H (0-31) U/L Alkaline Phosphatase 143 H (39-117) U/L Total Protein 7.4 (6.5-8.0) g/dL Albumin 4.6 (3.5-5.0) g/dL Lipase 39 (8-78) U/L Beta HCG, Quant < 2 mIU/mL COVID-19 (MADELINE) Negative (Negative) COVID-19 Clin Com See Note Influenza Type A (EMILY) Negative (Negative) Influenza Type B (EMILY) Negative (Negative) Influenza A & B Note See Note Independent Interpretation I performed an independent interpretation of an: CT Scan Radiology Impression Discussion of test interpretation with radiology: I have reviewed the radiologist's reading. Critical Care Time Critical Care Time Critical Care Time: Yes Total Critical Care Time: 36 Attestation: Time is exclusive of separately billable procedures. Time includes: direct patient care, patient reassessment, coordination of patient care, interpretation of data (laboratory data, pulse oximetry, arterial blood gases and chest xrays), review of patient's medical records, medical consultation and documentation of patient care. Procedures excluded from critical care time: central intravenous line placement and electrocardiography. Discharge Plan Discharge Clinical Impression: Choledocholithiasis Patient Disposition: Admitted As Inpatient Print Language: [place]
[2024-12-09] MEDS: iohexoL 350 MG/ML 100 ML INFUS..BTL 85 ML IV (22:38)
[2024-12-09 22:41] VITALS: BP 110/74; PULSE 86; RESP 20; O2SAT 97
[2024-12-10] VITALS (12 sets, daily range): BP systolic 103–133; BP diastolic 52–88; PULSE 63–97; RESP 10–18; TEMP 35.7–36.6; O2SAT 95–100; BMI 30.1
[2024-12-10 01:03] LABS: Lipase 39 U/L (8-78)
--- NOTE | 2024-12-10 01:52 | PM.IMHP ---
History of Present Illness Date of Service: 12/10/24 Chief Complaint: Rib pain 33-year-old female with no significant past medical history presented to the hospital with a chief complaint of rib pain. Patient mentioned that for about a month she has been having lower rib pain mostly on the right side intermittently. On last Friday she had severe pain associated nausea and vomiting felt like ribs tearing apart. Mentions that in the course of 1 month she had visited urgent care and was given antibiotics for presumed pneumonia. Last Friday she visited to the ER and was told she had pneumonia and was given 2nd course of antibiotics again. Today she had severe pain in her right lower rib/upper abdomen, radiating to the back; associated nausea. Denies any diarrhea. Denies any fevers and chills. Denies any chest pain or palpitations. Denies any cough or sputum production. Review of all other systems is negative except mentioned above ER course: Per ER team, patient noted to have right lower chest wall pain. Noted elevated liver enzymes. Afebrile. No leukocytosis. CT angio showed no evidence of pulmonary embolism or pneumonia; no evidence of aortic dissection. Calculus in the ampulla-choledocholithiasis; small gallstones in the gallbladder. No CT evidence of acute cholecystitis. ER team discussed with Dr. Hines who suggested admission to the hospital [facility] Social History Smoked in Last 30 Days: No Use of substances other than those prescribed or required for medical reasons: No Advance Directives: No Advance Directives Information Provided: No Do you have a plan to hurt others: No Plan Meds Allergies Allergy/AdvReac Type Severity Reaction Status Date / Time No Known Allergies Allergy Verified 12/09/24 18:39 Physical Exam Vital Signs and Narrative: Vital Signs: Last Vital Signs Temp 97.9 F 12/10/24 01:48 Pulse 63 12/10/24 01:48 Resp 16 12/10/24 01:48 BP 103/64 12/10/24 01:48 Pulse Ox 99 12/10/24 01:48 O2 Del Method Room Air 12/10/24 01:48 BMI result Body Mass Index 29.1 Gen: Appears be in no acute distress HEENT: NCAT, Moist mucosa. Pulmonary: Vesicular breath sounds, fair air entry CVS: Normal S1-S2 Abdomen: BS+, Soft, mildly tender in the right upper quadrant; no guarding no rigidity Extremities: Warm well perfused Neuro: Alert and awake. Results Labs 12/10/24 04:42 12/10/24 04:42 Labs: Laboratory Results - last 24 hr 12/09/24 19:04 MCV 90.4 MCH 30.6 MCHC 33.8 RDW 12.8 Plt Count 270 MPV 10.0 Immature Gran % (Auto) 0.4 Neut % (Auto) 64.8 Lymph % (Auto) 25.0 [place]erry % (Auto) 7.5 Eos % (Auto) 1.9 Baso % (Auto) 0.4 Lymph # (Auto) 2.3 [place] # (Auto) 0.7 Eos # (Auto) 0.2 Baso # (Auto) 0.0 Abs Immat Gran (auto) 0.04 H Absolute Neuts (auto) 5.9 Absolute Nucleated RBC 0.000 Nucleated RBC % (auto) 0.0 Anion Gap 13 Estim Creat Clear Calc 135.7 Estimated GFR > 60 Random Glucose 90 Calcium 9.3 Total Bilirubin 0.8 Direct Bilirubin 0.3 AST 400 H ALT 597 H Alkaline Phosphatase 143 H Total Protein 7.4 Albumin 4.6 Lipase 39 Beta HCG, Quant < 2 COVID-19 (MADELINE) Negative COVID-19 Clin Com See Note Influenza Type A (EMILY) Negative Influenza Type B (EMILY) Negative Influenza A & B Note See Note Assessment and Plan (1) Choledocholithiasis: Status: Acute Plan 33-year-old female with no significant past medical history presented to the hospital with a chief complaint of rib pain. Noted to have choledocholithiasis/cholelithiasis. Cholelithiasis/choledocholithiasis: Transaminitis: Gastroenterology was notified Pain control Gentle IV fluids NPO Empiric antibiotics Follow-up cultures DVT prophylaxis: Lovenox Code status: Full code Quality Stroke Does the patient have a stroke diagnosis?: No VTE Prior VTE?: No VTE Risk Level:: Medical - moderate - high VTE Device Contraindication: Treatment Not Indicated VTE Drug Contraindication: N/A - Med Ordered
[2024-12-10] MEDS: metroNIDAZOLE/NS 500 MG/100 ML PIGGYBACK 100 MG IV ×3 (02:25→17:02)
[2024-12-10 04:59] LABS: MANUAL DIFF FLAG NO
[2024-12-10 05:02] LABS: Hematocrit 39.0 % (37.0-47.0); Hemoglobin 13.3 g/dl (12.0-16.0); Imm Gran Abs Auto 0.04 X10*3/uL (0.00-0.03); Imm Gran Pct Auto 0.4 % (0.0-0.4); Lymphocytes Absolute Auto 3.1 X10*3/uL (1.2-4.9); Mean Corpuscular HGB Conc 34.1 g/dl (31.0-35.0); Mean Corpuscular Hemoglobin 30.7 pg (27.0-33.0); Mean Corpuscular Volume 90.1 fL (80.0-98.0); NRBC Abs Auto 0.000 X10*3/uL (0.0-0.012); NRBC Pct Auto 0.0 /100WBC (0.0-0.2); Platelet Count 247 X10*3/uL (160-400); Red Blood Count 4.33 X10*6/uL (4.20-5.50); White Blood Count 9.9 X10*3/uL (4.8-10.8)
[2024-12-10 05:21] LABS: Alanine Aminotransferase 478 U/L (0-31); Albumin Level 4.1 g/dL (3.5-5.0); Alkaline Phosphatase 124 U/L (39-117); Anion Gap 11 (12-20); Aspartate Amino Transferase 227 U/L (5-31); Blood Urea Nitrogen 10 mg/dL (9-16); Calcium 9.0 mg/dL (8.4-10.2); Carbon Dioxide 29 mmol/L (22-29); Chloride 105 mmol/L (96-108); Creatinine Clr Calc Pharmacy 146.5; Estimated Glomerular Filt Rate > 60; Potassium 4.0 mmol/L (3.3-5.1); Sodium 141 mmol/L (135-145); Total Protein 6.8 g/dL (6.5-8.0)
--- NOTE | 2024-12-10 07:13 | P.CNGI_ITS ---
History of Present Illness Data of Consult Service Date: 12/10/24 Requesting physician: Luca Woods Primary Care Provider: Unknown Physician HPI Reason for consult: Cholelithiasis 33 year old healthy female seen at [facility] ED on 12/09/24 with rib pain. Patient mentioned that for about a month she has been having lower rib pain mostly on the right side intermittently radiating to the back. She describes the pain is stabbing and pressure and ususally lasts for 2 hours and subsides spontaneously. Pain usually wakes her up at night around 4-5 am. Patient is unsure if there is any relationship with particular foods. She notes increased pain associated nausea and vomiting on 12/07 (felt like ribs tearing apart). Pt notes postprandial urge to defecate especially after drinking coffee and after a heavy meal. Pt reports she had visited the urgent care and was given antibiotics for presumed pneumonia over the past month. Last Friday she visited to the ER and was told she had pneumonia and was given 2nd course of antibiotics again. Today she had severe pain in her right lower rib/upper abdomen, radiating to the back; associated nausea. Pt denied any diarrhea, fever or chills, chest pain or palpitations, cough or sputum production. Patient denies smoking or ETOH abuse. She denies loud snoring or sleep apnea. Patient denies known family history of gallbladder disease, colon polyps or GI malignancy. 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 She reports having an appendectomy at age 5 and no other surgeries ER course: Labs showed elevated liver enzymes. CT angio showed no evidence of pulmonary embolism or pneumonia; no evidence of aortic dissection. 12/09/[address] SCAN SHOWED: 1. Calculus visualized near the ampulla, suggesting choledocholithiasis. No significant intrahepatic or extrahepatic biliary dilation identified. 2. Small gallstones present within the gallbladder lumen. No CT evidence for acute cholecystitis. Review of Systems 2 Review of Systems: Pertinent review of systems as mentioned in HPI. All other system otherwise negative. Yes all other systems are reviewed and are negative [facility] Social History Social History Smoked in Last 30 Days: No Use of substances other than those prescribed or required for medical reasons: No Advance Directives: No Advance Directives Information Provided: No Do you have a plan to hurt others: No Plan Meds Allergies Allergy/AdvReac Type Severity Reaction Status Date / Time No Known Allergies Allergy Verified 12/09/24 18:39 Active Medications: Current Medications Acetaminophen (Acetaminophen 325 Mg Tablet) 650 mg PO Q6H PRN PRN Reason: Pain, Mild 1-3,fever,headache Calcium Carbonate (Calcium Carbonate 750 Mg Tab.Chew) 750 mg PO Q4H PRN PRN Reason: Heartburn Ceftriaxone Sodium (Ceftriaxone Sodium 1 Gm Vial) 1 gm IVPUSH Q24H [facility] Last Admin: 12/10/24 02:25 Dose: 1 gm Enoxaparin Sodium (Enoxaparin Sodium 40 Mg/0.4 Ml Syringe) 40 mg SUBCUT Q24H [facility] Last Admin: 12/10/24 02:31 Dose: Not Given Hydromorphone HCl (Hydromorphone Hcl 1 Mg/Ml Syringe) 0.5 mg IVPUSH Q4H PRN; Protocol PRN Reason: Pain, Severe (Pain Scale 7-10) Dextrose/Sodium Chloride (D5ns) 1,000 mls @ 100 mls/hr IVCONT .Q10H [facility] Last Admin: 12/10/24 02:25 Dose: 100 mls/hr Metronidazole (Flagyl) 500 mg in 100 mls @ 100 mls/hr IV Q8H [facility] Last Infusion: 12/10/24 03:25 Dose: Infused Magnesium Hydroxide (Milk Of Magnesia 30 Ml Oral.Susp) 30 ml PO DAILY PRN PRN Reason: Constipation Melatonin (Melatonin 3 Mg Tablet) 6 mg PO BEDTIME PRN PRN Reason: Insomnia Senna (Sennosides 8.6 Mg Tablet) 17.2 mg PO BEDTIME [facility] Sodium Chloride (0.9 % Sodium Chloride Flush 3 Ml Syringe) 3 ml IVFLUSH QSHIFT [facility] Physical Exam 2 Vital Signs: Vital Signs: Last Vital Signs Temp 97.9 F 12/10/24 04:47 Pulse 97 12/10/24 04:47 Resp 14 12/10/24 04:47 BP 105/66 12/10/24 04:47 Pulse Ox 99 12/10/24 04:47 O2 Del Method Room Air 12/10/24 04:47 BMI result Body Mass Index 29.1 Const: General: healthy appearing and no acute distress Nutritional Appearance: overweight Orientation/consciousness: patient oriented x3 L imitations: no limitations HEENT: Head: Yes normal to inspection Ears: hearing grossly normal bilaterally Mouth: Normal oral and palatal mucosa present Eyes: Sclerae: sclerae normal Pupils: Equal, round and reactive pupils present Neck: Neck: Yes normal visual inspection Chest: Chest palpation & inspection: normal inspection of the chest Resp: Effort & Inspection: normal respiratory effort Auscultation: clear to auscultation bilaterally Cardio: Palpation: normal PMI Rate: regular rate Rhythm: regular rhythm Heart sounds: S1 normal heart sound present, S2 normal heart sound present and no murmurs GI: Palpation (GI): Soft to palpation, Tenderness to palpation present (GI) (Mild RUQ tenderness without rebound) and No hepatosplenomegaly present A uscultation: normal bowel sounds Rectal Exam - Female: deferred Skin: General skin exam: no rashes or lesions noted Neuro: General: patient oriented x3, gait normal and moves all extremities Cranial nerves: Yes Equal, round and reactive pupils present Psych: Appearance: grossly normal Mental Status: mental status grossly normal Results Labs 12/10/24 04:42 12/10/24 04:42 Labs: Short CBC 12/09/24 12/10/24 Range/Units 19:04 04:42 WBC 9.0 9.9 (4.8-10.8) X10*3/uL Hgb 14.4 13.3 (12.0-16.0) g/dl Hct 42.6 39.0 (37.0-47.0) % Plt Count 270 247 (160-400) X10*3/uL BMP 12/09/24 12/10/24 19:04 04:42 Sodium 142 141 Potassium 4.1 4.0 Chloride 104 105 Carbon Dioxide 29 29 BUN 9 10 Creatinine 0.68 0.63 Calcium 9.3 9.0 Liver Function 12/09/24 12/10/24 Range/Units 19:04 04:42 Total Bilirubin 0.8 0.6 (0.0-1.0) mg/dL Direct Bilirubin 0.3 (0.0-0.5) mg/dL AST 400 H 227 H (5-31) U/L ALT 597 H 478 H (0-31) U/L Alkaline Phosphatase 143 H 124 H (39-117) U/L Albumin 4.6 4.1 (3.5-5.0) g/dL Assessment and Plan (1) Choledocholithiasis: Status: Acute Plan 33 year old healthy female admitted to [facility] on 12/10/24 with right upper quadrant/rib pain. Patient denies smoking or ETOH abuse. She denies loud snoring or sleep apnea. She reports having an appendectomy at age 5 and no other surgeries Labs showed elevated liver enzymes. CT angio showed no evidence of pulmonary embolism or pneumonia; no evidence of aortic dissection. 12/09/[address] SCAN SHOWED: 1. Calculus visualized near the ampulla, suggesting choledocholithiasis. PLAN: 1. Agree with IV antibiotics and pain medications. 2. Pt needs an ERCP for removal of CBD stone. ERCP procedure and potential complications including bleeding, perforation, reaction to anesthetic, aspirate, infection and pancreatitis were reviewed with the patient. Patient is scheduled for an ERCP today with Dr. Romeo 3. Surgical consult for Lap Nusrat Procedures Date of Service Date of Service: 12/10/24
--- NOTE | 2024-12-10 08:03 | HO.NURTONUR ---
33 yr old female admitted for Choledocholithiasis. Pt seen at Urgent Care recently, treated for UTI. Pt reports ongoing pain and therefore came to ED and had CXR suggestive of pneumonia. Pt d/c'd on Abx. Pt followed up with PCP who advised she return to ED for CT given ongoing discomfort. Pt found to have Choldocholithiasis. A&Ox3 VSS NPO at this time 20g to LAC IVF: D5NS @ 100 ml/hr Gastro consult pending.
--- NOTE | 2024-12-10 08:15 | PC.NURSE ---
Pharmacy staff at bedside.
--- NOTE | 2024-12-10 08:41 | PHA.MEDREC ---
Addendum entered by Devin Campos, PharmD 12/10/24 09:07: [facility] rec checked by [facility] Original Note: Pharmacy Consult ? Medication Reconciliation Pharmacy has completed the medication reconciliation. Patient states she is not taking any medications. Patient no longer takes Cyclobenzaprine 10 mg, Azithromycin 250 mg, Fluconazole 150 mg, Cephalexin 500 mg and Bactrim Ds.
--- NOTE | 2024-12-10 09:36 | PM.CNGS ---
History of Present Illness Consult details Consult date: 12/10/24 Reason for consult: other (Choledocholithiasis) Narrative: 33-year-old female with no significant past medical history presented to the hospital with a chief complaint of rib pain, found to have choledocholithiasis on CT scan. Patient reports she has been having RUQ intermittent pain for about the last month, this peaked on friday, she presented to the ED and was diagnosed with PNA and discharge with abx. She returned becuase the pain was worsening, developed nausea and vomiting. ED labs showing elevated liver enzymes, CT of the abodmen showing choledocholithiasis, able to visualize stone at the ampulla. Additionally she does have stones in the gallbladder. No evidence of acute cholecystitis. She does not have a white count at this time. She was started on metronidazole and ceftriaxone. Liver enzymes trending down today. GI was consulted, recommending ERCP she is to have this later today. General surgery consulted for possible lap priya. She is interested in pursuing surgical intervention, does not want to go through this again, states this is worse than her natural childbirth. Surgical history significant for open appendectomy. Denies smoking, alcohol use, drug use. Denies allergies. Denies daily medications. [facility] Surgical History Surgical History (Updated 12/10/24 @ 08:40 by Mami Suárez RN) History of laparoscopic appendectomy Social History Social History Household Members: Significant Other and Children Housing: House Patient Tobacco Use Status: Never used Tobacco Smoked in Last 30 Days: No Use of substances other than those prescribed or required for medical reasons: No Advance Directives: No Advance Directives Information Provided: No Do you have a plan to hurt others: No Plan Recently lost weight without trying: Unsure Patient : No Meds Allergies Allergy/AdvReac Type Severity Reaction Status Date / Time No Known Allergies Allergy Verified 12/09/24 18:39 Active Medications: Current Medications Acetaminophen (Acetaminophen 325 Mg Tablet) 650 mg PO Q6H PRN PRN Reason: Pain, Mild 1-3,fever,headache Calcium Carbonate (Calcium Carbonate 750 Mg Tab.Chew) 750 mg PO Q4H PRN PRN Reason: Heartburn Ceftriaxone Sodium (Ceftriaxone Sodium 1 Gm Vial) 1 gm IVPUSH Q24H [facility] Last Admin: 12/10/24 02:25 Dose: 1 gm Hydromorphone HCl (Hydromorphone Hcl 1 Mg/Ml Syringe) 0.5 mg IVPUSH Q4H PRN; Protocol PRN Reason: Pain, Severe (Pain Scale 7-10) Dextrose/Sodium Chloride (D5ns) 1,000 mls @ 100 mls/hr IVCONT .Q10H [facility] Last Admin: 12/10/24 02:25 Dose: 100 mls/hr Metronidazole (Flagyl) 500 mg in 100 mls @ 100 mls/hr IV Q8H [facility] Last Infusion: 12/10/24 03:25 Dose: Infused Magnesium Hydroxide (Milk Of Magnesia 30 Ml Oral.Susp) 30 ml PO DAILY PRN PRN Reason: Constipation Melatonin (Melatonin 3 Mg Tablet) 6 mg PO BEDTIME PRN PRN Reason: Insomnia Senna (Sennosides 8.6 Mg Tablet) 17.2 mg PO BEDTIME [facility] Sodium Chloride (0.9 % Sodium Chloride Flush 3 Ml Syringe) 3 ml IVFLUSH QSHIFT [facility] Last Admin: 12/10/24 07:34 Dose: Not Given Home Medications ?Medication ?Instructions ?Recorded ?Confirmed ?Last Taken ?Type No Known Home Meds 12/10/24 12/10/24 Unknown History Physical Exam Vital Signs: Vital Signs: Last Vital Signs Temp 97 F 12/10/24 09:30 Pulse 70 12/10/24 09:30 Resp 16 12/10/24 09:30 BP 114/63 12/10/24 09:30 Pulse Ox 97 12/10/24 09:30 O2 Del Method Room Air 12/10/24 09:30 BMI result Body Mass Index 30.1 Const: General: comfortable and no acute distress Orientation/consciousness: patient oriented x3 Resp: Effort & Inspection: normal respiratory effort and able to speak in complete sentences GI: Inspection: No distended and Yes scar Palpation (GI): Soft to palpation, Tenderness to palpation present (GI) (General tenderness throughout) Luis's sign negative and no guarding Abdomen image:  1. Open appendectomy scar Neuro: General: patient oriented x3 Results Labs 12/10/24 04:42 12/10/24 04:42 Labs: Abnormal lab results 12/09/24 12/10/24 Range/Units 19:04 04:42 Abs Immat Gran (auto) 0.04 H 0.04 H (0.00-0.03) X10*3/uL Anion Gap 11 L (12-20) AST 400 H 227 H (5-31) U/L ALT 597 H 478 H (0-31) U/L Alkaline Phosphatase 143 H 124 H (39-117) U/L Short CBC 12/09/24 12/10/24 Range/Units 19:04 04:42 WBC 9.0 9.9 (4.8-10.8) X10*3/uL Hgb 14.4 13.3 (12.0-16.0) g/dl Hct 42.6 39.0 (37.0-47.0) % Plt Count 270 247 (160-400) X10*3/uL BMP 12/09/24 12/10/24 19:04 04:42 Sodium 142 141 Potassium 4.1 4.0 Chloride 104 105 Carbon Dioxide 29 29 BUN 9 10 Creatinine 0.68 0.63 Calcium 9.3 9.0 Liver Function 12/09/24 12/10/24 Range/Units 19:04 04:42 Total Bilirubin 0.8 0.6 (0.0-1.0) mg/dL Direct Bilirubin 0.3 (0.0-0.5) mg/dL AST 400 H 227 H (5-31) U/L ALT 597 H 478 H (0-31) U/L Alkaline Phosphatase 143 H 124 H (39-117) U/L Albumin 4.6 4.1 (3.5-5.0) g/dL All other labs normal. Assessment and Plan (1) Choledocholithiasis: Status: Acute Plan 33-year-old female with no significant past medical history presented to the hospital with a chief complaint of rib pain, found to have choledocholithiasis on CT scan. Has been having intermittent biliary colic for about the last month. This peaked on Friday, presents to the ED was diagnosed with pneumonia, discharged with antibiotics. Returned yesterday for worsening pain, nausea and vomiting. CT scan showing choledocholithiasis with a stone able to be visualized near the ampulla, there is evidence of cholelithiasis in the gallbladder. Additionally has normal white count, elevated transaminases and alk-phos. Now trending down today, it is possible she has passed this stone already. She was started on Flagyl and ceftriaxone. GI was consulted, planning for ERCP later today. She is feeling better currently pain has improved, now more discomfort. On exam she is mildly tender throughout the abdomen, negative Luis's sign. We discussed option of surgical intervention during this admission to prevent recurrence given that she has cholelithiasis. Patient would like to pursue surgical intervention as she does not want to go through this again. For now lab to wait for ERCP, we will trend liver enzymes, when normalize can proceed with laparoscopic possible open cholecystectomy. ERCP today, okay to have clears or low-fat diet after procedure. We will trend liver enzymes over the weekend when normalized can proceed with laparoscopic possible open cholecystectomy Procedures Date of Service Date of Service: 12/10/24
--- NOTE | 2024-12-10 12:07 | MHC.CM.PN ---
CM MET WITH PT AT BEDSIDE. 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 + HCP PCP [facility] DP: HOME, NO SERVICES IS ANTICIPATED. PT HAS OWN RIDE HOME. CM WILL CONTINUE TO FOLLOW FOR ANY CHANGE TO DC PLAN.
--- NOTE | 2024-12-10 12:32 | HO.ANESPROP2 ---
HPI - Anesthesia Eval Consult details Narrative: 33 yo F presenting for ERCP [facility] Active Problems Active Problems: All Active Problems (Updated 12/10/24 @ 01:34 by Lucrecia Winston DO) Choledocholithiasis (Acute) Family History Family history of problems with anesthesia: No Surgical History Surgical History (Updated 12/10/24 @ 10:30 by Yasemin Leggett RN) Hx of appendectomy History of ERCP History of Problems with Anesthesia: No Social History Social History Household Members: Significant Other and Children Housing: House Patient Tobacco Use Status: Never used Tobacco Smoked in Last 30 Days: No Use of substances other than those prescribed or required for medical reasons: No Have you been hit, kicked, punched, or otherwise hurt by someone within the past year? If so, by whom?: No Are you DNR?: No Advance Directives: No Advance Directives Information Provided: No Do you have a plan to hurt others: No Plan Recently lost weight without trying: Unsure Patient : No service: No Meds Allergies Allergy/AdvReac Type Severity Reaction Status Date / Time No Known Allergies Allergy Verified 12/09/24 18:39 Active Medications: Current Medications Acetaminophen (Acetaminophen 325 Mg Tablet) 650 mg PO Q6H PRN PRN Reason: Pain, Mild 1-3,fever,headache Calcium Carbonate (Calcium Carbonate 750 Mg Tab.Chew) 750 mg PO Q4H PRN PRN Reason: Heartburn Ceftriaxone Sodium (Ceftriaxone Sodium 1 Gm Vial) 1 gm IVPUSH Q24H REPLACED BY [facility] Last Admin: 12/10/24 02:25 Dose: 1 gm Hydromorphone HCl (Hydromorphone Hcl 1 Mg/Ml Syringe) 0.5 mg IVPUSH Q4H PRN; Protocol PRN Reason: Pain, Severe (Pain Scale 7-10) Dextrose/Sodium Chloride (D5ns) 1,000 mls @ 100 mls/hr IVCONT .Q10H REPLACED BY [facility] Last Admin: 12/10/24 02:25 Dose: 100 mls/hr Metronidazole (Flagyl) 500 mg in 100 mls @ 100 mls/hr IV Q8H REPLACED BY [facility] Last Infusion: 12/10/24 10:58 Dose: Infused Magnesium Hydroxide (Milk Of Magnesia 30 Ml Oral.Susp) 30 ml PO DAILY PRN PRN Reason: Constipation Melatonin (Melatonin 3 Mg Tablet) 6 mg PO BEDTIME PRN PRN Reason: Insomnia Senna (Sennosides 8.6 Mg Tablet) 17.2 mg PO BEDTIME [facility] Sodium Chloride (0.9 % Sodium Chloride Flush 3 Ml Syringe) 3 ml IVFLUSH QSHIFT [facility] Last Admin: 12/10/24 07:34 Dose: Not Given Home Medications ?Medication ?Instructions ?Recorded ?Confirmed ?Last Taken ?Type No Known Home Meds 12/10/24 12/10/24 Unknown History Exam Exam Date and Time: 12/10/24 1230 Height,Weight and Vital Signs: Height 5 ft 8 in Weight 89.9 kg Last Vital Signs Temp 97.5 F 12/10/24 10:41 Pulse 89 12/10/24 10:41 Resp 18 12/10/24 10:41 BP 112/77 12/10/24 10:41 Pulse Ox 98 12/10/24 10:41 O2 Del Method Room Air 12/10/24 10:41 Pertinent Lab Results Pertinent Lab Results: Laboratory Tests 12/09/24 12/10/24 19:04 04:42 WBC 9.0 9.9 RBC 4.71 4.33 Hgb 14.4 13.3 Hct 42.6 39.0 MCV 90.4 90.1 MCH 30.6 30.7 MCHC 33.8 34.1 RDW 12.8 12.7 Plt Count 270 247 MPV 10.0 10.3 Immature Gran % (Auto) 0.4 0.4 Neut % (Auto) 64.8 57.8 Lymph % (Auto) 25.0 31.4 [place] % (Auto) 7.5 8.1 Eos % (Auto) 1.9 2.0 Baso % (Auto) 0.4 0.3 Lymph # (Auto) 2.3 3.1 [place] # (Auto) 0.7 0.8 Eos # (Auto) 0.2 0.2 Baso # (Auto) 0.0 0.0 Abs Immat Gran (auto) 0.04 H 0.04 H Absolute Neuts (auto) 5.9 5.7 Absolute Nucleated RBC 0.000 0.000 Nucleated RBC % (auto) 0.0 0.0 Sodium 142 141 Potassium 4.1 4.0 Chloride 104 105 Carbon Dioxide 29 29 Anion Gap 13 11 L BUN 9 10 Creatinine 0.68 0.63 Estim Creat Clear Calc 135.7 146.5 Estimated GFR > 60 > 60 Random Glucose 90 104 Calcium 9.3 9.0 Total Bilirubin 0.8 0.6 Direct Bilirubin 0.3 AST 400 H 227 H ALT 597 H 478 H Alkaline Phosphatase 143 H 124 H Total Protein 7.4 6.8 Albumin 4.6 4.1 Lipase 39 Beta HCG, Quant < 2 COVID-19 ([facility]) Negative COVID-19 Clin Com See Note Influenza Type A (EMILY) Negative Influenza Type B (EMILY) Negative Influenza A & B Note See Note Airway Mallampati Class: I TM Dist: >3cm Neck ROM: Full Loose/Missing/Broken Teeth: No (patient denies any loose or broken teeth) Heart: S1S2 Lungs: CTAB Assessment and Plan Assessment Anesthesia Assessment: Anesthesia Plan Discussed and Chart Reviewed Final Anesthetic Review Family History of Problems with Anesthesia: No History of Problems with Anesthesia: No NPO: Yes ASA Class: I Final Preanesthetic Review: No Changes in Pt Med Stat, Meds/Allgs Chart Reviewed, Consent Obtained/Reviewed and Anes Risks/Benef Reviewed Patient Risk: Low Procedure Risk: Low Anesthetic Plan Anesthetic Plan: GA and Agree w/ Assess. and Plan Disposition: Standard PACU
--- NOTE | 2024-12-10 14:04 | PM.OP ---
Brief Operative Note Date of Service: 12/10/24 Pre-op diagnosis: cbd stone Procedure: ERCP Surgeon: Herman Romeo MD Anesthesia: GETA Was an Curtain Hemmer Automatic used for this Procedure?: No Estimated blood loss (mL): 0 Condition: stable Disposition: PACU
--- NOTE | 2024-12-10 14:05 | PM.EVENT ---
Event Note Date of Service: 12/10/24 Event Note: ERCP single 3-4mm cbd stone removed after sphincterotomy. advance diet lap ccy per gen surg Time Spent With Patient Time: Total time managing care of this patient today ____ minutes.
--- NOTE | 2024-12-10 14:40 | PM.EVENT ---
Event Note Date of Service: 12/10/24 Event Note: Chart reviewed patient examined. Agree with history and physical and plan as outlined. ERCP done this a.m.. Surgical consult pending Time Spent With Patient Time: Total time managing care of this patient today ____ minutes.
[2024-12-10] MEDS: 0.9 % Sodium Chloride Flush 3 ML SYRINGE IVFLUSH (17:03)
--- NOTE | 2024-12-10 21:51 | OP_ITS ---
DATE OF SERVICE: 12/10/2024 SURGEON: Herman Romeo MD INDICATIONS: Common bile duct stone. PREOPERATIVE DIAGNOSIS: POSTOPERATIVE DIAGNOSIS: PROCEDURE PERFORMED: ERCP with sphincterotomy and extraction of common bile duct stone. ESTIMATED BLOOD LOSS: COMPLICATIONS: ANESTHESIA: General anesthesia. ASSISTANTS: SPECIMENS: DESCRIPTION OF PROCEDURE: A history and physical was performed. The risks and benefits of the procedure were explained to the patient. Informed consent was obtained. The patient was placed in the prone position with a wedge under the right shoulder. The Snaptalent disposable duodenoscope was introduced into the esophagus, stomach, and duodenum. Examination was performed, and the scope was removed. She tolerated the procedure well, was returned to the recovery area in stable condition. FINDINGS: Endoscopy: Limited examination of the esophagus, stomach, and duodenum was within normal limits. The major papilla appeared normal with yellow bile noted. Access to the common bile duct was established using a guidewire and sphincterotome. Injection of contrast material showed a filling defect in the distal duct consistent with the findings on CT scan. The duct was not dilated. Sphincterotomy was made to approximately 8 mm with no immediate complications. A small 3 to 4 mm stone was extracted using the sphincterotome. Balloon sweeps, produced no further stones. No further filling defects were identified on occlusion cholangiography. The cystic duct was noted to fill. No pancreatogram was attempted or obtained, although it did appear that the wire entered the pancreatic duct on several occasions. IMPRESSION: Common bile duct stone. RECOMMENDATION: 1. Follow up as needed. 2. Laparoscopic colonoscopy per General Surgery. MD FORTINO Avila/KBL / [id number] MTDD
[2024-12-11 03:48] VITALS: BP 96/55; PULSE 80; RESP 17; TEMP 35.9; O2SAT 96
[2024-12-11] MEDS: metroNIDAZOLE/NS 500 MG/100 ML PIGGYBACK 100 MG IV ×3 (03:48→17:29)
[2024-12-11 07:38] VITALS: BP 105/54; PULSE 104; RESP 16; TEMP 36.3; O2SAT 97
--- NOTE | 2024-12-11 08:45 | P.PNGS_ITS ---
Subjective Subjective Date of Service: 12/11/24 Interval history: Patient reports having a rough night due to loss of IV access. She is eager to proceed to cholecystectomy and is hoping to be discharged home tomorrow Physical Exam 2 Vital Signs: Vital Signs: Last Vital Signs Temp 97.4 F 12/11/24 07:38 Pulse 104 H 12/11/24 07:38 Resp 16 12/11/24 07:38 BP 105/54 L 12/11/24 07:38 Pulse Ox 97 12/11/24 07:38 O2 Del Method Room Air 12/11/24 07:38 O2 Flow Rate 4 12/10/24 14:14 BMI result Body Mass Index 30.1 Const: General: no acute distress Nutritional Appearance: well nourished Orientation/consciousness: patient oriented x3 Resp: Other: Breathing comfortably on room air Effort & Inspection: normal respiratory effort, no audible wheezes, no cough and no respiratory distress GI: Other: Mild tenderness in the right upper quadrant otherwise soft and nondistended, no rebound, guarding or rigidity. Negative Luis sign. Skin: Other: Warm, dry, normal color Neuro: General: patient oriented x3 Extrem: General: Yes no pedal edema Objective Data Active Medications Acetaminophen (Acetaminophen 325 Mg Tablet) 650 mg PO Q6H PRN PRN Reason: Pain, Mild 1-3,fever,headache Last Admin: 12/10/24 17:28 Dose: 650 mg Documented By: MARS Calcium Carbonate (Calcium Carbonate 750 Mg Tab.Chew) 750 mg PO Q4H PRN PRN Reason: Heartburn Ceftriaxone Sodium (Ceftriaxone Sodium 1 Gm Vial) 1 gm IVPUSH Q24H [facility] Last Admin: 12/11/24 03:48 Dose: 1 gm Documented By: MATT Hydromorphone HCl (Hydromorphone Hcl 1 Mg/Ml Syringe) 0.5 mg IVPUSH Q4H PRN; Protocol PRN Reason: Pain, Severe (Pain Scale 7-10) Dextrose/Sodium Chloride (D5ns) 1,000 mls @ 100 mls/hr IVCONT .Q10H [facility] Last Infusion: 12/11/24 04:50 Dose: 100 mls/hr Documented By: MATT Metronidazole (Flagyl) 500 mg in 100 mls @ 100 mls/hr IV Q8H [facility] Last Infusion: 12/11/24 04:49 Dose: Infused Documented By: MATT Magnesium Hydroxide (Milk Of Magnesia 30 Ml Oral.Susp) 30 ml PO DAILY PRN PRN Reason: Constipation Melatonin (Melatonin 3 Mg Tablet) 6 mg PO BEDTIME PRN PRN Reason: Insomnia Naloxone HCl (Naloxone Hcl 0.4 Mg/Ml Vial) 0.04 mg IVPUSH Q5M PRN PRN Reason: Excessive sedation or RR < 8 Ondansetron HCl (Ondansetron Hcl 4 Mg/2 Ml Vial) 4 mg IVPUSH Q6H PRN PRN Reason: Nausea Senna (Sennosides 8.6 Mg Tablet) 17.2 mg PO BEDTIME [facility] Last Admin: 12/10/24 20:48 Dose: Not Given Documented By: MATT Non-Admin Reason: Patient Refused Sodium Chloride (0.9 % Sodium Chloride Flush 3 Ml Syringe) 3 ml IVFLUSH QSHIFT [facility] Last Admin: 12/11/24 07:19 Dose: Not Given Documented By: DENEEN Non-Admin Reason: IV Running Labs 12/10/24 04:42 12/10/24 04:42 Microbiology Microbiology Results: Microbiology 12/10/24 02:16 Blood Culture - Preliminary Blood - Venous No growth after 24 hours. 12/10/24 02:21 Blood Culture - Preliminary Blood - Venous No growth after 24 hours. Procedures Date of Service Date of Service: 12/11/24 Progress Note: A&P Assessment and plan (1) Choledocholithiasis: Status: Acute Plan 33-year-old female patient presenting with complaints of abdominal pain in the epigastrium and right upper quadrant found to have choledocholithiasis with elevated LFTs. CT confirmed a stone at the distal common bile duct. She underwent ERCP yesterday with removal of a common bile duct stone. She feels improved this morning but does still have some right upper quadrant abdominal pain. I reviewed the procedure, risks, and alternatives regarding laparoscopic or possible open cholecystectomy this morning. She expressed understanding and consents to the surgery. She has been added onto the schedule for tomorrow a.m.. NPO after midnight. Time Spent With Patient Time: Total time managing care of this patient today ____ minutes. Quality Stroke Does the patient have a stroke diagnosis?: No VTE Prior VTE?: No VTE Risk Level:: Medical - moderate - high VTE Device Contraindication: Treatment Not Indicated VTE Drug Contraindication: N/A - Med Ordered
--- NOTE | 2024-12-11 13:10 | HO.PM.IMPN ---
Subjective Subjective Date of Service: 12/11/24 Interval History: No acute issues overnight. Pain control adequate Review of Systems Chest pain Denies shortness of breath Denies nausea vomiting diarrhea Denies fever chills Physical Exam Vital Signs: Vital Signs: Last Vital Signs Temp 97.4 F 12/11/24 07:38 Pulse 104 H 12/11/24 07:38 Resp 16 12/11/24 07:38 BP 105/54 L 12/11/24 07:38 Pulse Ox 97 12/11/24 07:38 O2 Del Method Room Air 12/11/24 07:38 O2 Flow Rate 4 12/10/24 14:14 BMI result Body Mass Index 30.1 Const: Other: Awake alert oriented x3 in no acute distress Resp: Other: Clear to auscultation bilaterally no rales rhonchi or wheezes Cardio: Other: No S4; positive S1-S2; no S3 murmurs rubs or gallops GI: Other: Soft nontender nondistended normoactive bowel sounds Extrem: Other: No edema bilaterally Objective Data Active Medications Acetaminophen (Acetaminophen 325 Mg Tablet) 650 mg PO Q6H PRN PRN Reason: Pain, Mild 1-3,fever,headache Last Admin: 12/11/24 11:55 Dose: 650 mg Documented By: DENEEN Calcium Carbonate (Calcium Carbonate 750 Mg Tab.Chew) 750 mg PO Q4H PRN PRN Reason: Heartburn Ceftriaxone Sodium (Ceftriaxone Sodium 1 Gm Vial) 1 gm IVPUSH Q24H [facility] Last Admin: 12/11/24 03:48 Dose: 1 gm Documented By: MATT Hydromorphone HCl (Hydromorphone Hcl 1 Mg/Ml Syringe) 0.5 mg IVPUSH Q4H PRN; Protocol PRN Reason: Pain, Severe (Pain Scale 7-10) Dextrose/Sodium Chloride (D5ns) 1,000 mls @ 100 mls/hr IVCONT .Q10H [facility] Last Admin: 12/11/24 08:57 Dose: 100 mls/hr Documented By: DENEEN Metronidazole (Flagyl) 500 mg in 100 mls @ 100 mls/hr IV Q8H [facility] Last Infusion: 12/11/24 11:53 Dose: Infused Documented By: DENEEN Magnesium Hydroxide (Milk Of Magnesia 30 Ml Oral.Susp) 30 ml PO DAILY PRN PRN Reason: Constipation Melatonin (Melatonin 3 Mg Tablet) 6 mg PO BEDTIME PRN PRN Reason: Insomnia Naloxone HCl (Naloxone Hcl 0.4 Mg/Ml Vial) 0.04 mg IVPUSH Q5M PRN PRN Reason: Excessive sedation or RR < 8 Ondansetron HCl (Ondansetron Hcl 4 Mg/2 Ml Vial) 4 mg IVPUSH Q6H PRN PRN Reason: Nausea Senna (Sennosides 8.6 Mg Tablet) 17.2 mg PO BEDTIME [facility] Last Admin: 12/10/24 20:48 Dose: Not Given Documented By: MATT Non-Admin Reason: Patient Refused Sodium Chloride (0.9 % Sodium Chloride Flush 3 Ml Syringe) 3 ml IVFLUSH QSHIFT [facility] Last Admin: 12/11/24 07:19 Dose: Not Given Documented By: DENEEN Non-Admin Reason: IV Running Labs 12/10/24 04:42 12/10/24 04:42 Microbiology Microbiology Results: Microbiology 12/10/24 02:16 Blood Culture - Preliminary Blood - Venous No growth after 24 hours. 12/10/24 02:21 Blood Culture - Preliminary Blood - Venous No growth after 24 hours. Assessment and Plan (1) Choledocholithiasis: Status: Acute Plan 33-year-old female with no significant past medical history presented to the hospital with a chief complaint of rib pain. Noted to have choledocholithiasis/cholelithiasis. 1.Cholelithiasis/choledocholithiasis: -ERCP 12/10/2024; 3-4 mm stone extracted from duct -for lap priya in a.m. -ceftriaxone/metronidazole (2) -pain control adequate DVT prophylaxis: Lovenox Code status: Full code Quality Stroke Does the patient have a stroke diagnosis?: No VTE Prior VTE?: No VTE Risk Level:: Medical - moderate - high VTE Device Contraindication: Treatment Not Indicated VTE Drug Contraindication: N/A - Med Ordered
[2024-12-11 15:28] VITALS: BP 113/60; PULSE 100; RESP 18; TEMP 36.4; O2SAT 96
[2024-12-11 20:00] VITALS: BP 123/59; PULSE 79; RESP 18; TEMP 36.2; O2SAT 98
--- NOTE | 2024-12-11 20:50 | HO.POSTANES ---
Post Anesthesia Evaluation Post Anesthesia Evaluation Date of Service: 12/11/24 Vital Signs: Vital Signs Temp Pulse Resp BP Pulse Ox O2 Del Method 12/11/24 20:00 97.2 F 79 18 123/59 L 98 Room Air 12/11/24 15:28 97.5 F 100 18 113/60 96 Room Air Anesthesia: General Endotracheal-GETA Mental Status: Awake Pain Control: Satisfactory Nausea/Vomiting: None Hydration: Adequate Anesthesia-Related Issues: No Anes. Related Issues
[2024-12-12] VITALS (10 sets, daily range): BP systolic 100–116; BP diastolic 57–78; PULSE 62–77; RESP 16–18; TEMP 36.1–36.4; O2SAT 96–100
[2024-12-12] MEDS: metroNIDAZOLE/NS 500 MG/100 ML PIGGYBACK 100 MG IV ×3 (01:30→17:31)
[2024-12-12 08:36] LABS: MANUAL DIFF FLAG NO
[2024-12-12 08:45] LABS: Hematocrit 36.8 % (37.0-47.0); Hemoglobin 12.4 g/dl (12.0-16.0); Imm Gran Abs Auto 0.05 X10*3/uL (0.00-0.03); Imm Gran Pct Auto 0.5 % (0.0-0.4); Lymphocytes Absolute Auto 3.1 X10*3/uL (1.2-4.9); Mean Corpuscular HGB Conc 33.7 g/dl (31.0-35.0); Mean Corpuscular Hemoglobin 30.7 pg (27.0-33.0); Mean Corpuscular Volume 91.1 fL (80.0-98.0); NRBC Abs Auto 0.000 X10*3/uL (0.0-0.012); NRBC Pct Auto 0.0 /100WBC (0.0-0.2); Platelet Count 216 X10*3/uL (160-400); Red Blood Count 4.04 X10*6/uL (4.20-5.50); White Blood Count 10.8 X10*3/uL (4.8-10.8)
[2024-12-12 08:55] LABS: Alanine Aminotransferase 225 U/L (0-31); Albumin Level 3.7 g/dL (3.5-5.0); Alkaline Phosphatase 82 U/L (39-117); Anion Gap 9 (12-20); Aspartate Amino Transferase 55 U/L (5-31); Blood Urea Nitrogen 8 mg/dL (9-16); Calcium 8.4 mg/dL (8.4-10.2); Carbon Dioxide 27 mmol/L (22-29); Chloride 107 mmol/L (96-108); Creatinine Clr Calc Pharmacy 159.0; Estimated Glomerular Filt Rate > 60; Potassium 3.9 mmol/L (3.3-5.1); Sodium 139 mmol/L (135-145); Total Protein 5.9 g/dL (6.5-8.0)
--- NOTE | 2024-12-12 09:10 | PM.PNGS ---
Subjective Subjective Date of Service: 12/12/24 Interval history: Patient reports some right upper quadrant abdominal pain this morning. She is eager to proceed with surgery today. Physical Exam Vital Signs: Vital Signs: Last Vital Signs Temp 97.1 F 12/12/24 08:00 Pulse 75 12/12/24 08:00 Resp 16 12/12/24 08:00 BP 100/66 12/12/24 08:00 Pulse Ox 97 12/12/24 08:00 O2 Del Method Room Air 12/12/24 08:00 O2 Flow Rate 4 12/10/24 14:14 BMI result Body Mass Index 30.1 Const: General: no acute distress Nutritional Appearance: well nourished Orientation/consciousness: patient oriented x3 Resp: Other: Breathing comfortably on room air Effort & Inspection: normal respiratory effort, no audible wheezes, no cough and no respiratory distress GI: Other: Mild tenderness in the right upper quadrant otherwise soft and nondistended, no rebound, guarding or rigidity. Negative Luis sign. Skin: Other: Warm, dry, normal color Neuro: General: patient oriented x3 Extrem: General: Yes no pedal edema Objective Data Active Medications Acetaminophen (Acetaminophen 325 Mg Tablet) 650 mg PO Q6H PRN PRN Reason: Pain, Mild 1-3,fever,headache Last Admin: 12/11/24 11:55 Dose: 650 mg Documented By: DENEEN Calcium Carbonate (Calcium Carbonate 750 Mg Tab.Chew) 750 mg PO Q4H PRN PRN Reason: Heartburn Ceftriaxone Sodium (Ceftriaxone Sodium 1 Gm Vial) 1 gm IVPUSH Q24H [facility] Last Admin: 12/12/24 01:30 Dose: 1 gm Documented By: MATT Hydromorphone HCl (Hydromorphone Hcl 1 Mg/Ml Syringe) 0.5 mg IVPUSH Q4H PRN; Protocol PRN Reason: Pain, Severe (Pain Scale 7-10) Metronidazole (Flagyl) 500 mg in 100 mls @ 100 mls/hr IV Q8H [facility] Last Infusion: 12/12/24 02:48 Dose: Infused Documented By: MATT Magnesium Hydroxide (Milk Of Magnesia 30 Ml Oral.Susp) 30 ml PO DAILY PRN PRN Reason: Constipation Melatonin (Melatonin 3 Mg Tablet) 6 mg PO BEDTIME PRN PRN Reason: Insomnia Naloxone HCl (Naloxone Hcl 0.4 Mg/Ml Vial) 0.04 mg IVPUSH Q5M PRN PRN Reason: Excessive sedation or RR < 8 Ondansetron HCl (Ondansetron Hcl 4 Mg/2 Ml Vial) 4 mg IVPUSH Q6H PRN PRN Reason: Nausea Senna (Sennosides 8.6 Mg Tablet) 17.2 mg PO BEDTIME [facility] Last Admin: 12/11/24 20:51 Dose: Not Given Documented By: MATT Non-Admin Reason: Patient Refused Sodium Chloride (0.9 % Sodium Chloride Flush 3 Ml Syringe) 3 ml IVFLUSH QSHIFT [facility] Last Admin: 12/12/24 07:16 Dose: Not Given Documented By: DENEEN Non-Admin Reason: IV Running Labs 12/12/24 08:20 12/12/24 08:20 Labs: Laboratory Results - last 24 hr 12/12/24 08:20 MCV 91.1 MCH 30.7 MCHC 33.7 RDW 12.9 Plt Count 216 MPV 10.3 Immature Gran % (Auto) 0.5 H Neut % (Auto) 60.5 Lymph % (Auto) 29.0 [place] % (Auto) 8.1 Eos % (Auto) 1.5 Baso % (Auto) 0.4 Lymph # (Auto) 3.1 [place] # (Auto) 0.9 Eos # (Auto) 0.2 Baso # (Auto) 0.0 Abs Immat Gran (auto) 0.05 H Absolute Neuts (auto) 6.5 Absolute Nucleated RBC 0.000 Nucleated RBC % (auto) 0.0 Anion Gap 9 L Estim Creat Clear Calc 159.0 Estimated GFR > 60 Random Glucose 91 Calcium 8.4 D Total Bilirubin 0.4 AST 55 H ALT 225 H Alkaline Phosphatase 82 Total Protein 5.9 L Albumin 3.7 Microbiology Microbiology Results: Microbiology 12/10/24 02:16 Blood Culture - Preliminary Blood - Venous No growth after 48 hours. 12/10/24 02:21 Blood Culture - Preliminary Blood - Venous No growth after 48 hours. Procedures Date of Service Date of Service: 12/12/24 Progress Note: A&P Assessment and plan (1) Choledocholithiasis: Status: Acute Plan 33-year-old female patient presenting with complaints of abdominal pain in the epigastrium and right upper quadrant found to have choledocholithiasis with elevated LFTs. CT confirmed a stone at the distal common bile duct. She underwent ERCP yesterday with removal of a common bile duct stone. She feels improved this morning but does still have some right upper quadrant abdominal pain. I reviewed the procedure, risks, and alternatives regarding laparoscopic or possible open cholecystectomy this morning. She expressed understanding and consents to the surgery. She would like to be discharged to home after the surgery if possible. Time Spent With Patient Time: Total time managing care of this patient today ____ minutes. Quality Stroke Does the patient have a stroke diagnosis?: No VTE Prior VTE?: No VTE Risk Level:: Medical - moderate - high VTE Device Contraindication: Treatment Not Indicated VTE Drug Contraindication: N/A - Med Ordered
--- NOTE | 2024-12-12 10:17 | P.CONAN_ITS ---
HPI - Anesthesia Eval Consult details Narrative: Cholelithiasis PMFSH Active Problems Active Problems: All Active Problems (Updated 12/10/24 @ 01:34 by Lucrecia Winston DO) Choledocholithiasis (Acute) Family History Family history of problems with anesthesia: No Surgical History Surgical History (Updated 12/10/24 @ 10:30 by Yasemin Leggett RN) Hx of appendectomy History of ERCP History of Problems with Anesthesia: No Social History Social History Household Members: Significant Other and Children Housing: House Patient Tobacco Use Status: Never used Tobacco Smoked in Last 30 Days: No Use of substances other than those prescribed or required for medical reasons: No Currently Displaying Signs/Symptoms of Drug Intoxication Withdrawal: No Have you been hit, kicked, punched, or otherwise hurt by someone within the past year? If so, by whom?: No Are you DNR?: No Advance Directives: No Advance Directives Information Provided: No Do you have a plan to hurt others: No Plan Recently lost weight without trying: Unsure Patient : No service: No Meds Allergies Allergy/AdvReac Type Severity Reaction Status Date / Time No Known Allergies Allergy Verified 12/09/24 18:39 Active Medications: Current Medications Acetaminophen (Acetaminophen 325 Mg Tablet) 650 mg PO Q6H PRN PRN Reason: Pain, Mild 1-3,fever,headache Last Admin: 12/11/24 11:55 Dose: 650 mg Calcium Carbonate (Calcium Carbonate 750 Mg Tab.Chew) 750 mg PO Q4H PRN PRN Reason: Heartburn Ceftriaxone Sodium (Ceftriaxone Sodium 1 Gm Vial) 1 gm IVPUSH Q24H [facility] Last Admin: 12/12/24 01:30 Dose: 1 gm Hydromorphone HCl (Hydromorphone Hcl 1 Mg/Ml Syringe) 0.5 mg IVPUSH Q4H PRN; Protocol PRN Reason: Pain, Severe (Pain Scale 7-10) Metronidazole (Flagyl) 500 mg in 100 mls @ 100 mls/hr IV Q8H [facility] Last Admin: 12/12/24 09:30 Dose: 100 mls/hr Magnesium Hydroxide (Milk Of Magnesia 30 Ml Oral.Susp) 30 ml PO DAILY PRN PRN Reason: Constipation Melatonin (Melatonin 3 Mg Tablet) 6 mg PO BEDTIME PRN PRN Reason: Insomnia Naloxone HCl (Naloxone Hcl 0.4 Mg/Ml Vial) 0.04 mg IVPUSH Q5M PRN PRN Reason: Excessive sedation or RR < 8 Ondansetron HCl (Ondansetron Hcl 4 Mg/2 Ml Vial) 4 mg IVPUSH Q6H PRN PRN Reason: Nausea Senna (Sennosides 8.6 Mg Tablet) 17.2 mg PO BEDTIME [facility] Last Admin: 12/11/24 20:51 Dose: Not Given Sodium Chloride (0.9 % Sodium Chloride Flush 3 Ml Syringe) 3 ml IVFLUSH QSHIFT [facility] Last Admin: 12/12/24 07:16 Dose: Not Given Home Medications ?Medication ?Instructions ?Recorded ?Confirmed ?Last Taken ?Type No Known Home Meds 12/10/24 12/10/24 Un known History Exam Height,Weight and Vital Signs: Height 5 ft 8 in Weight 89.9 kg Last Vital Signs Temp 97.1 F 12/12/24 08:00 Pulse 75 12/12/24 08:00 Resp 16 12/12/24 08:00 BP 100/66 12/12/24 08:00 Pulse Ox 97 12/12/24 08:00 O2 Del Method Room Air 12/12/24 08:00 O2 Flow Rate 4 12/10/24 14:14 Pertinent Lab Results Pertinent Lab Results: Laboratory Tests 12/09/24 12/10/24 12/12/24 19:04 04:42 08:20 WBC 9.0 9.9 10.8 RBC 4.71 4.33 4.04 L Hgb 14.4 13.3 12.4 Hct 42.6 39.0 36.8 L MCV 90.4 90.1 91.1 MCH 30.6 30.7 30.7 MCHC 33.8 34.1 33.7 RDW 12.8 12.7 12.9 Plt Count 270 247 216 MPV 10.0 10.3 10.3 Immature Gran % (Auto) 0.4 0.4 0.5 H Neut % (Auto) 64.8 57.8 60.5 Lymph % (Auto) 25.0 31.4 29.0 [place] % (Auto) 7.5 8.1 8.1 Eos % (Auto) 1.9 2.0 1.5 Baso % (Auto) 0.4 0.3 0.4 Lymph # (Auto) 2.3 3.1 3.1 [place] # (Auto) 0.7 0.8 0.9 Eos # (Auto) 0.2 0.2 0.2 Baso # (Auto) 0.0 0.0 0.0 Abs Immat Gran (auto) 0.04 H 0.04 H 0.05 H Absolute Neuts (auto) 5.9 5.7 6.5 Absolute Nucleated RBC 0.000 0.000 0.000 Nucleated RBC % (auto) 0.0 0.0 0.0 Sodium 142 141 139 Potassium 4.1 4.0 3.9 Chloride 104 105 107 Carbon Dioxide 29 29 27 Anion Gap 13 11 L 9 L BUN 9 10 8 L Creatinine 0.68 0.63 0.59 Estim Creat Clear Calc 135.7 146.5 159.0 Estimated GFR > 60 > 60 > 60 Random Glucose 90 104 91 Calcium 9.3 9.0 8.4 D Total Bilirubin 0.8 0.6 0.4 Direct Bilirubin 0.3 AST 400 H 227 H 55 H ALT 597 H 478 H 225 H Alkaline Phosphatase 143 H 124 H 82 Total Protein 7.4 6.8 5.9 L Albumin 4.6 4.1 3.7 Lipase 39 Beta HCG, Quant < 2 COVID-19 (MADELINE) Negative COVID-19 Clin Com See Note Influenza Type A (EMILY) Negative Influenza Type B (EMILY) Negative Influenza A & B Note See Note Airway Mallampati Class: II TM Dist: >3cm Neck ROM: Full Loose/Missing/Broken Teeth: No Heart: RRR Lungs: CTA Assessment and Plan Assessment Anesthesia Assessment: Anesthesia Plan Discussed and Chart Reviewed Final Anesthetic Review Family History of Problems with Anesthesia: No History of Problems with Anesthesia: No NPO: Yes ASA Class: I Final Preanesthetic Review: No Changes in Pt Med Stat, Meds/Allgs Chart Reviewed, Consent Obtained/Reviewed and Anes Risks/Benef Reviewed Patient Risk: Low Procedure Risk: Intermediate Anesthetic Plan Anesthetic Plan: GA Disposition: Standard PACU
--- NOTE | 2024-12-12 12:27 | P.PNIM_ITS ---
Subjective Subjective Date of Service: 12/12/24 Interval History: No acute issues overnight. Awaiting surgery today Review of Systems Chest pain Denies shortness of breath Denies nausea vomiting diarrhea Denies fever chills Physical Exam 2 Vital Signs: Vital Signs: Last Vital Signs Temp 97.1 F 12/12/24 08:00 Pulse 75 12/12/24 08:00 Resp 16 12/12/24 08:00 BP 100/66 12/12/24 08:00 Pulse Ox 97 12/12/24 08:00 O2 Del Method Room Air 12/12/24 08:00 O2 Flow Rate 4 12/10/24 14:14 BMI result Body Mass Index 30.1 Const: Other: Awake alert oriented x3 in no acute distress Resp: Other: Clear to auscultation bilaterally no rales rhonchi or wheezes Cardio: Other: No S4; positive S1-S2; no S3 murmurs rubs or gallops GI: Other: Soft nontender nondistended normoactive bowel sounds Extrem: Other: No edema bilaterally Objective Data Active Medications Acetaminophen (Acetaminophen 325 Mg Tablet) 650 mg PO Q6H PRN PRN Reason: Pain, Mild 1-3,fever,headache Last Admin: 12/11/24 11:55 Dose: 650 mg Documented By: DENEEN Calcium Carbonate (Calcium Carbonate 750 Mg Tab.Chew) 750 mg PO Q4H PRN PRN Reason: Heartburn Ceftriaxone Sodium (Ceftriaxone Sodium 1 Gm Vial) 1 gm IVPUSH Q24H ARNULFO Last Admin: 12/12/24 01:30 Dose: 1 gm Documented By: MATT Fentanyl (Fentanyl Citrate/Pf 100 Mcg/2 Ml Vial) 50 mcg IVPUSH Q5M PRN PRN Reason: Pain, Severe (Pain Scale 7-10) Stop: 12/12/24 16:18 Hydromorphone HCl (Hydromorphone Hcl 1 Mg/Ml Syringe) 0.5 mg IVPUSH Q4H PRN; Protocol PRN Reason: Pain, Severe (Pain Scale 7-10) Hydromorphone HCl (Hydromorphone Hcl 0.5 Mg/0.5 Ml Syringe) 0.5 mg IVPUSH Q5M PRN PRN Reason: Pain, Moderate to Severe (Pain Scale 4-10) Stop: 12/12/24 16:18 Metronidazole (Flagyl) 500 mg in 100 mls @ 100 mls/hr IV Q8H [facility] Last Infusion: 12/12/24 10:30 Dose: Infused Documented By: DENEEN Acetaminophen (Ofirmev) 1,000 mg in 100 mls @ 400 mls/hr IV ONCE PRN PRN Reason: Pain, Mild (Pain Scale 1-3) Stop: 12/12/24 16:18 Magnesium Hydroxide (Milk Of Magnesia 30 Ml Oral.Susp) 30 ml PO DAILY PRN PRN Reason: Constipation Melatonin (Melatonin 3 Mg Tablet) 6 mg PO BEDTIME PRN PRN Reason: Insomnia Naloxone HCl (Naloxone Hcl 0.4 Mg/Ml Vial) 0.04 mg IVPUSH Q5M PRN PRN Reason: Excessive sedation or RR < 8 Naloxone HCl (Naloxone Hcl 0.4 Mg/Ml Vial) 0.04 mg IVPUSH Q5M PRN PRN Reason: Excessive sedation or RR < 8 Ondansetron HCl (Ondansetron Hcl 4 Mg/2 Ml Vial) 4 mg IVPUSH Q6H PRN PRN Reason: Nausea Ondansetron HCl (Ondansetron Hcl 4 Mg/2 Ml Vial) 4 mg IVPUSH ONCE PRN PRN Reason: Nausea and Vomiting Stop: 12/12/24 16:18 Senna (Sennosides 8.6 Mg Tablet) 17.2 mg PO BEDTIME [facility] Last Admin: 12/11/24 20:51 Dose: Not Given Documented By: MATT Non-Admin Reason: Patient Refused Sodium Chloride (0.9 % Sodium Chloride Flush 3 Ml Syringe) [facility] Last Admin: 12/12/24 07:16 Dose: Not Given Documented By: DENEEN Non-Admin Reason: IV Running Labs 12/12/24 08:20 12/12/24 08:20 Labs: Laboratory Results - last 24 hr 12/12/24 08:20 MCV 91.1 MCH 30.7 MCHC 33.7 RDW 12.9 Plt Count 216 MPV 10.3 Immature Gran % (Auto) 0.5 H Neut % (Auto) 60.5 Lymph % (Auto) 29.0 [place] % (Auto) 8.1 Eos % (Auto) 1.5 Baso % (Auto) 0.4 Lymph # (Auto) 3.1 [place] # (Auto) 0.9 Eos # (Auto) 0.2 Baso # (Auto) 0.0 Abs Immat Gran (auto) 0.05 H Absolute Neuts (auto) 6.5 Absolute Nucleated RBC 0.000 Nucleated RBC % (auto) 0.0 Anion Gap 9 L Estim Creat Clear Calc 159.0 Estimated GFR > 60 Random Glucose 91 Calcium 8.4 D Total Bilirubin 0.4 AST 55 H ALT 225 H Alkaline Phosphatase 82 Total Protein 5.9 L Albumin 3.7 Microbiology Microbiology Results: Microbiology 12/10/24 02:16 Blood Culture - Preliminary Blood - Venous No growth after 48 hours. 12/10/24 02:21 Blood Culture - Preliminary Blood - Venous No growth after 48 hours. Assessment and Plan (1) Choledocholithiasis: Status: Acute Plan 33-year-old female with no significant past medical history presented to the hospital with a chief complaint of rib pain. Noted to have choledocholithiasis/cholelithiasis. 1.Cholelithiasis/choledocholithiasis: -ERCP 12/10/2024; 3-4 mm stone extracted from duct -for lap priya today -ceftriaxone/metronidazole (3) -pain control adequate DVT prophylaxis: Lovenox Code status: Full code Quality Stroke Does the patient have a stroke diagnosis?: No VTE Prior VTE?: No VTE Risk Level:: Medical - moderate - high VTE Device Contraindication: Treatment Not Indicated VTE Drug Contraindication: N/A - Med Ordered
--- NOTE | 2024-12-12 13:32 | P.OP_ITS ---
Operative Note Operative Note Date of Service: 12/12/24 Narrative: Preoperative diagnosis: Choledocholithiasis, transaminitis Postoperative diagnosis: Same Procedure: Laparoscopic cholecystectomy Surgeon: Travis Gutierrez MD Art Conservator: None Anesthesia: General endotracheal Indications for procedure: 33-year-old female patient found to have right upper quadrant abdominal pain with elevated LFTs. Patient was found to have a gallstone within the common bile duct. She underwent ERCP with stone removal. She presents today for laparoscopic appendectomy. Operative findings: Normal appearing gallbladder without evidence of acute cholecystitis Specimen: gallbladder Estimated blood loss: Less than 2 mL Complications: None Procedure details: Patient was brought to the OR and placed in a supine position. After administering general anesthesia the patient's abdomen was prepped with ChloraPrep and draped in a sterile fashion. A surgical time-out was called the consent confirmed. Patient received preoperative antibiotics and Venodyne boots were in place. Local anesthesia consisting of 0.5% Sensorcaine without epinephrine was infiltrated in a periumbilical region. A 5 mm incision was made above the umbilicus in a transverse fashion. The Veress needle was then inserted while elevating abdominal cavity with towel clips. After positive drop test the abdomen was insufflated to a pressure of 15 mm of mercury. The Veress needle was then removed and a 5 mm trocar inserted. The camera was inserted in the abdomen explored. A 12 mm trocar was then placed in the epigastrium. Two 5 mm trocars placed in the right upper quadrant by the therapeutic recreation assistant. The patient was placed in reverse Trendelenburg positioning and rotated to the left. The gallbladder was grasped with the fundus and retracted cephalad by the therapeutic recreation assistant. The infundibulum was then grasped and retracted away from the liver bed, also by the therapeutic recreation assistant. The Dolphin dissected was then used by the surgeon to dissect the peritoneum off the infundibulum to reveal the junction with the cystic duct. Cystic artery was noted slightly medial and posterior to the cystic duct. After obtaining a critical view the cystic duct was doubly clipped and divided. The cystic artery was then doubly clipped and divided. The gallbladder was then dissected off the liver bed using electrocautery with an L hook. Hemostasis was assured all times using the electrocautery. When the gallbladder is completely dissected off the liver bed was placed in an Endo-Catch bag and brought out through the epigastric incision. The gallbladder was sent to pathology for further examination. The abdomen was then re-examined. The liver bed was irrigated and suctioned dry. No bleeding or bile leak could be identified. CO2 was then evacuated and all trocars removed. Fascia was closed at the epigastric incision using a [id number] 0 Polysorb suture. Skin was closed in all incisions using a subcuticular 4 0 Polysorb suture by both the surgeon and therapeutic recreation assistant. Sterile dressings consisting of Steri-Strips, 2 x 2 gauze, and Tegaderm were then applied. The patient tolerated the procedure well. Sponge instrument and needle counts reported as correct. The patient was transferred to PACU in stable condition.
[2024-12-12] MEDS: Lactated Ringers 1,000 ML 100 ML IVCONT (15:33)
[2024-12-12] MEDS: 0.9 % Sodium Chloride Flush 3 ML SYRINGE IVFLUSH ×2 (15:39→20:00)
[2024-12-13] MEDS: oxyCODONE HCl Immed Release 5 MG TABLET PO ×2 (00:33→08:56)
[2024-12-13] MEDS: metroNIDAZOLE/NS 500 MG/100 ML PIGGYBACK 100 MG IV ×2 (02:26→08:54)
[2024-12-13] MEDS: Lactated Ringers 1,000 ML 100 ML IVCONT (02:37)
[2024-12-13 03:38] VITALS: BP 105/60; PULSE 62; RESP 14; TEMP 36; O2SAT 98
[2024-12-13 07:28] VITALS: BP 114/55; PULSE 69; RESP 18; TEMP 36.2; O2SAT 98
--- NOTE | 2024-12-13 08:09 | HO.POSTANES ---
Post Anesthesia Evaluation Post Anesthesia Evaluation Date of Service: 12/13/24 Vital Signs: Vital Signs Temp Pulse Resp BP Pulse Ox O2 Del Method 12/13/24 07:28 97.2 F 69 18 114/55 L 98 Room Air 12/13/24 03:38 96.8 F 62 14 105/60 98 Room Air Anesthesia: General Mental Status: Awake Pain Control: Satisfactory Nausea/Vomiting: None Hydration: Adequate Anesthesia-Related Issues: No Anes. Related Issues
--- NOTE | 2024-12-13 08:30 | P.PNGS_ITS ---
Subjective Subjective Date of Service: 12/13/24 Interval history: doing well, some intermittent sharp pain in RUQ. Denies nausea and vomiting. Tolerating diet, ambulating comfortably. Has urinated, no BMs. Feels like shes ready to go home Physical Exam 2 Vital Signs: Vital Signs: Last Vital Signs Temp 97.2 F 12/13/24 07:28 Pulse 69 12/13/24 07:28 Resp 18 12/13/24 07:28 BP 114/55 L 12/13/24 07:28 Pulse Ox 98 12/13/24 07:28 O2 Del Method Room Air 12/13/24 07:28 O2 Flow Rate 4 12/12/24 13:39 BMI result Body Mass Index 30.1 Const: General: comfortable and no acute distress O rientation/consciousness: patient oriented x3 Resp: Effort & Inspection: normal respiratory effort and able to speak in complete sentences GI: Inspection: No distended Palpation (GI): Soft to palpation and Tenderness to palpation present (GI) ( incisional) in the RUQ Neuro: General: patient oriented x3 Objective Data Active Medications Acetaminophen (Acetaminophen 325 Mg Tablet) 650 mg PO Q6H PRN PRN Reason: Pain, Mild 1-3,fever,headache Last Admin: 12/12/24 19:59 Dose: 650 mg Documented By: JOSE Calcium Carbonate (Calcium Carbonate 750 Mg Tab.Chew) 750 mg PO Q4H PRN PRN Reason: Heartburn Ceftriaxone Sodium (Ceftriaxone Sodium 1 Gm Vial) 1 gm IVPUSH Q24H [facility] Last Admin: 12/13/24 02:22 Dose: 1 gm Documented By: JOSE Hydromorphone HCl (Hydromorphone Hcl 1 Mg/Ml Syringe) 0.5 mg IVPUSH Q4H PRN; Protocol PRN Reason: Pain, Severe (Pain Scale 7-10) Metronidazole (Flagyl) 500 mg in 100 mls @ 100 mls/hr IV Q8H [facility] Last Infusion: 12/13/24 03:26 Dose: Infused Documented By: JOSE Lactated Ringer's (Lr) 1,000 mls @ 100 mls/hr IVCONT .Q10H [facility] Last Admin: 12/13/24 02:37 Dose: 100 mls/hr Documented By: JOSE Magnesium Hydroxide (Milk Of Magnesia 30 Ml Oral.Susp) 30 ml PO DAILY PRN PRN Reason: Constipation Melatonin (Melatonin 3 Mg Tablet) 6 mg PO BEDTIME PRN PRN Reason: Insomnia Ondansetron HCl (Ondansetron Hcl 4 Mg/2 Ml Vial) 4 mg IVPUSH Q6H PRN PRN Reason: Nausea Last Admin: 12/13/24 07:41 Dose: 4 mg Documented By: TIMI Oxycodone HCl (Oxycodone Hcl Immed Release 5 Mg Tablet) 5 mg PO Q6H PRN PRN Reason: Pain, Moderate(Pain Scale 4-6) Last Admin: 12/13/24 00:33 Dose: 5 mg Documented By: JOSE Senna (Sennosides 8.6 Mg Tablet) 17.2 mg PO BEDTIME [facility] Last Admin: 12/12/24 19:58 Dose: 17.2 mg Documented By: JOSE Sodium Chloride (0.9 % Sodium Chloride Flush 3 Ml Syringe) 3 ml IVFLUSH QSHIFT [facility] Last Admin: 12/13/24 07:33 Dose: Not Given Documented By: TIMI Non-Admin Reason: IV Running Labs 12/12/24 08:20 12/12/24 08:20 Labs: Laboratory Results - last 24 hr 12/12/24 08:20 MCV 91.1 MCH 30.7 MCHC 33.7 RDW 12.9 Plt Count 216 MPV 10.3 Immature Gran % (Auto) 0.5 H Neut % (Auto) 60.5 Lymph % (Auto) 29.0 [place] % (Auto) 8.1 Eos % (Auto) 1.5 Baso % (Auto) 0.4 Lymph # (Auto) 3.1 [facility] # (Auto) 0.9 Eos # (Auto) 0.2 Baso # (Auto) 0.0 Abs Immat Gran (auto) 0.05 H Absolute Neuts (auto) 6.5 Absolute Nucleated RBC 0.000 Nucleated RBC % (auto) 0.0 Anion Gap 9 L Estim Creat Clear Calc 159.0 Estimated GFR > 60 Random Glucose 91 Calcium 8.4 D Total Bilirubin 0.4 AST 55 H ALT 225 H Alkaline Phosphatase 82 Total Protein 5.9 L Albumin 3.7 Procedures Date of Service Date of Service: 12/13/24 Progress Note: A&P Assessment and plan (1) S/P laparoscopic cholecystectomy: Status: Acute Plan 33 year old female, admitted for choledocolithiasis, s/p ERCP, now POD1 lap priya. She tolerated the procedure well. Pain is generally well controlled, trying to use nonnarcotic, but has used them to sleep. She does experience some intermittent sharp pain in the RUQ, reassured her this is normal, may be due to insufflation, procedure. She has tolerated regular diet. denies nausea or vomiting. Feels ready to go home. Liver enzymes continue to trend down, would expect these to normalize over the next few days. From a surgical standpoint, patient can eb discharged, she should follow up in the office in about 1-2 weeks, can have Rx for oxycodone at home. Time Spent With Patient Time: Total time managing care of this patient today ____ minutes. Quality Stroke Does the patient have a stroke diagnosis?: No VTE Prior VTE?: No VTE Risk Level:: Medical - moderate - high VTE Device Contraindication: Treatment Not Indicated VTE Drug Contraindication: N/A - Med Ordered
--- NOTE | 2024-12-13 11:41 | PM.DS ---
DS: Providers Provider Date of Service: 12/13/24 Date of admission: 12/10/24 01:49 Date of discharge: 12/13/24 Primary care physician: Unknown Physician Consults: 12/10/24 01:49 Consult to Gastroenterology Routine Consulting Provider: [facility] Reason for consultation: choledocholithiasis 12/10/24 08:25 Consult to General Surgery Routine Consulting Provider: [facility] [facility] Reason for consultation: Choledocholithiasis Has provider been notified: No DS: Diagnosis Discharge Diagnosis (1) S/P laparoscopic cholecystectomy: Status: Acute (2) Choledocholithiasis: Status: Acute DS: Summary Hospital Course Hospital Course: From the history and physical by the admitting hospitalist, Luca Woods 12/10/24: 33-year-old female with no significant past medical history presented to the hospital with a chief complaint of rib pain. Patient mentioned that for about a month she has been having lower rib pain mostly on the right side intermittently. On last Friday she had severe pain associated nausea and vomiting felt like ribs tearing apart. Mentions that in the course of 1 month she had visited urgent care and was given antibiotics for presumed pneumonia. Last Friday she visited to the ER and was told she had pneumonia and was given 2nd course of antibiotics again. Today she had severe pain in her right lower rib/upper abdomen, radiating to the back; associated nausea. Denies any diarrhea. Denies any fevers and chills. Denies any chest pain or palpitations. Denies any cough or sputum production. Review of all other systems is negative except mentioned above ER course: Per ER team, patient noted to have right lower chest wall pain. Noted elevated liver enzymes. Afebrile. No leukocytosis. CT angio showed no evidence of pulmonary embolism or pneumonia; no evidence of aortic dissection. Calculus in the ampulla-choledocholithiasis; small gallstones in the gallbladder. No CT evidence of acute cholecystitis. ER team discussed with Dr. Hines who suggested admission to the hospital She was admitted to the medical-surgical unit with Gastroenterology and General Surgery consultations. She underwent ERCP 12/10/24 with extraction of 3-4 mm CBD stone. She then underwent uncomplicated lapraoscopic cholecystectomy on 12/12/24. Diet was advanced and pain controlled. She was discharged home and should followup with General Surgery in 1 week. Time Attestation Discharge Coordination Time (in mins): 35 Quality: Safe Use of Opioids Does Pt have an Active Cancer Diagnosis on the Problem List?: No Quality: Stroke Does the patient have a stroke diagnosis?: No Physical Exam Vital Signs: Vital Signs: Last Vital Signs Temp 97.2 F 12/13/24 07:28 Pulse 69 12/13/24 07:28 Resp 18 12/13/24 07:28 BP 114/55 L 12/13/24 07:28 Pulse Ox 98 12/13/24 07:28 O2 Del Method Room Air 12/13/24 07:28 O2 Flow Rate 4 12/12/24 13:39 BMI result Body Mass Index 30.1 Gen: in no acute distress HEENT: sclera anicteric, moist mucus membranes Neck: supple Lungs: clear to auscultation bilaterally Heart: regular rate and rhythm, no murmurs Abd: soft, mildly tender, non-distended, clean laparoscopic incisions x4 Ext: no edema Skin: warm/well-perfused Neuro: alert and oriented x3, no focal findings Psych: appropriate affect DS: Data Data Completed and Pending Completed studies during hospitalization [Text1]: Laboratory Results WBC 10.8 X10*3/uL (4.8-10.8) 12/12/24 08:20 RBC 4.04 X10*6/uL (4.20-5.50) L 12/12/24 08:20 Hgb 12.4 g/dl (12.0-16.0) 12/12/24 08:20 Hct 36.8 % (37.0-47.0) L 12/12/24 08:20 MCV 91.1 fL (80.0-98.0) 12/12/24 08:20 MCH 30.7 pg (27.0-33.0) 12/12/24 08:20 MCHC 33.7 g/dl (31.0-35.0) 12/12/24 08:20 RDW 12.9 % (11.0-16.0) 12/12/24 08:20 Plt Count 216 X10*3/uL (160-400) 12/12/24 08:20 MPV 10.3 fL (9.4-12.3) 12/12/24 08:20 Immature Gran % (Auto) 0.5 % (0.0-0.4) H 12/12/24 08:20 Neut % (Auto) 60.5 % (45-73) 12/12/24 08:20 Lymph % (Auto) 29.0 % (20-40) 12/12/24 08:20 [place] % (Auto) 8.1 % (2-11) 12/12/24 08:20 Eos % (Auto) 1.5 % (0-4) 12/12/24 08:20 Baso % (Auto) 0.4 % (0-2) 12/12/24 08:20 Lymph # (Auto) 3.1 X10*3/uL (1.2-4.9) 12/12/24 08:20 [place] # (Auto) 0.9 X10*3/uL (0.1-1.2) 12/12/24 08:20 Eos # (Auto) 0.2 X10*3/uL (0.0-0.4) 12/12/24 08:20 Baso # (Auto) 0.0 X10*3/uL (0.0-0.2) 12/12/24 08:20 Abs Immat Gran (auto) 0.05 X10*3/uL (0.00-0.03) H 12/12/24 08:20 Absolute Neuts (auto) 6.5 x10*3/uL (2.0-8.3) 12/12/24 08:20 Absolute Nucleated RBC 0.000 X10*3/uL (0.0-0.012) 12/12/24 08:20 Nucleated RBC % (auto) 0.0 /100WBC (0.0-0.2) 12/12/24 08:20 Sodium 139 mmol/L (135-145) 12/12/24 08:20 Potassium 3.9 mmol/L (3.3-5.1) 12/12/24 08:20 Chloride 107 mmol/L (96-108) 12/12/24 08:20 Carbon Dioxide 27 mmol/L (22-29) 12/12/24 08:20 Anion Gap 9 (12-20) L 12/12/24 08:20 BUN 8 mg/dL (9-16) L 12/12/24 08:20 Creatinine 0.59 mg/dL (0.5-1.4) 12/12/24 08:20 Estim Creat Clear Calc 159.0 12/12/24 08:20 Estimated GFR > 60 12/12/24 08:20 Random Glucose 91 mg/dL (60-115) 12/12/24 08:20 Calcium 8.4 mg/dL (8.4-10.2) D 12/12/24 08:20 Total Bilirubin 0.4 mg/dL (0.0-1.0) 12/12/24 08:20 Direct Bilirubin 0.3 mg/dL (0.0-0.5) 12/09/24 19:04 AST 55 U/L (5-31) H 12/12/24 08:20 ALT 225 U/L (0-31) H 12/12/24 08:20 Alkaline Phosphatase 82 U/L (39-117) 12/12/24 08:20 Total Protein 5.9 g/dL (6.5-8.0) L 12/12/24 08:20 Albumin 3.7 g/dL (3.5-5.0) 12/12/24 08:20 Lipase 39 U/L (8-78) 12/09/24 19:04 Beta HCG, Quant < 2 mIU/mL 12/09/24 19:04 COVID-19 (MADELINE) Negative (Negative) 12/09/24 19:04 COVID-19 Clin Com See Note 12/09/24 19:04 Influenza Type A (EMILY) Negative (Negative) 12/09/24 19:04 Influenza Type B (EMILY) Negative (Negative) 12/09/24 19:04 Influenza A & B Note See Note 12/09/24 19:04 Impressions Guidance Fluoroscopy 12/10/24 12:45 IMPRESSION: Fluoroscopy during procedure. Please see procedure report for additional information. Electronically signed by: Elbert Andrade MD 12/10/2024 02:31 PM EDT Pending studies at discharge: Pending at discharge 12/12/24 13:11 Surgical [PTH] Routine Discharge Plan Discharge Anticipated Discharge Date/Time: 12/13/24 11:32 Patient Disposition: Home, Self-Care Discharge Diagnosis: Choledocholithiasis Referrals: Travis Gutierrez MD [Physician, General Surgery] - 1 Week Katie Gonzalez [Primary Care Provider, Medical] - 1 Week Discharge Medications: New oxycodone 5 mg Tablet 5 mg PO Q6H PRN (Reason: SEVERE PAIN) Qty: 12 0RF Rx Instructions: Partial Fill upon patient request. ondansetron HCl 4 mg tablet 4 mg PO Q8H PRN (Reason: nausea and vomiting) Qty: 9 0RF Discharge Orders: Discharge Order (Routine); Ordered 12/13/24 Ordered By: Jenifer Plummer Diet: Low fat, low cholesterol Activity on Discharge: No heavy lifting Stand Alone Forms: Patient Portal Discharge page, Work/School Release Print Language: Romanian Activity Restrictions/Additional Instructions: No lifting > 10 pounds for 2 weeks Stay on low fat diet for 1 month No driving for one week Ice to the incision x 24 hours After 24 hours, use warm compress or heating pad on low as needed Take Tylenol Extra-strength 1-2 tabs every 6 hours as needed Oxycodone every 6-8 hours as needed for pain Colace 100 mg every day as needed for constipation Remove dressing in 3 days Follow up in office in one week (call office at [phone] for appointment). Care Plan Goals: recover from surgery Health Concerns: Choledocholithiasis Plan of Treatment: as above Assessment: See Discharge Summary.
--- NOTE | 2024-12-13 11:48 | MHC.CM.PN ---
PT WILL DC HOME TODAY WITH NO SERVICES VIA PRIVATE TRANSPORT
== END 2024-12-13 12:25 | disposition home or self-care (01) | DRG 263 ==
LOC: HO.ED 12-10 01:34 → HO.EDOVER 12-10 01:55 → HO.S3 12-10 07:52
PROVIDERS: Hospitalist; Internal Medicine Gastroenterology; Physician Assistant Medical; Surgery; Admitting Provider Hospitalist; Emergency Provider Student in an Organized Health Care Education/Training Program; PCP Internal Medicine; Visit Provider Family Medicine
PROC: 0FC98ZZ Extirpation of Matter from Common Bile Duct, Via Natural or Artificial Opening Endoscopic (ICD-10-PCS; CPT 43260; principal; 2024-12-10 11:40)
PROC: 0FT44ZZ Resection of Gallbladder, Percutaneous Endoscopic Approach (ICD-10-PCS; CPT 47562; principal; 2024-12-12 11:00)
DX: K80.50 Calculus of bile duct without cholangitis or cholecystitis without obstruction (principal); Z20.822 Contact with and (suspected) exposure to COVID-19; Z87.01 Personal history of pneumonia (recurrent)
CPT/HCPCS: 36415; 71275; 74177; 76705; 80048; 80053; 80076; 83690; 84702; 85025; 87040; 87502; 87635; 88304; 93005; 99285; C1748; J0131; J0665; J0696; J1100; J1610; J1836; J1885; J2003; J2250; J2405; J2704; J3010; J7120; Q9967

== ENCOUNTER → 2024-12-09 18:23 | Outpatient (BNV) | payer OTHER, SELFPAY | PROVIDERS: Admitting Provider Hospitalist; Emergency Provider Student in an Organized Health Care Education/Training Program; Visit Provider Internal Medicine Cardiovascular Disease | DX: R94.31 Abnormal electrocardiogram [ECG] [EKG] (principal); R07.9 Chest pain, unspecified | CPT/HCPCS: 93010 ==

== ENCOUNTER → 2024-12-09 21:53 | Outpatient (BNV) | payer OTHER, SELFPAY | PROVIDERS: Emergency Provider Student in an Organized Health Care Education/Training Program; Visit Provider Radiology Diagnostic Radiology | DX: K80.20 Calculus of gallbladder without cholecystitis without obstruction (principal); I26.99 Other pulmonary embolism without acute cor pulmonale; K81.9 Cholecystitis, unspecified | CPT/HCPCS: 71275; 74177; 76705 ==

== ENCOUNTER → 2024-12-10 01:49 | Outpatient (BNV) | payer OTHER, SELFPAY | PROVIDERS: Admitting Provider Hospitalist; Emergency Provider Student in an Organized Health Care Education/Training Program; Visit Provider Hospitalist | DX: K80.50 Calculus of bile duct without cholangitis or cholecystitis without obstruction (principal) | CPT/HCPCS: 99223; 99499 ==

== ENCOUNTER → 2024-12-10 01:49 | Outpatient (BNV) | payer OTHER, SELFPAY | PROVIDERS: Admitting Provider Hospitalist; Emergency Provider Student in an Organized Health Care Education/Training Program | DX: K80.50 Calculus of bile duct without cholangitis or cholecystitis without obstruction (principal) | CPT/HCPCS: 47562; 99024; 99232 ==

== ENCOUNTER → 2024-12-10 01:49 | Outpatient (BNV) | payer OTHER, SELFPAY | PROVIDERS: Admitting Provider Hospitalist; Emergency Provider Student in an Organized Health Care Education/Training Program; Visit Provider Internal Medicine Gastroenterology | DX: K80.50 Calculus of bile duct without cholangitis or cholecystitis without obstruction (principal) | CPT/HCPCS: 99222 ==

== ENCOUNTER 2024-12-20 09:02 | Outpatient (AMB) | payer MEDICAID, SELFPAY ==
--- NOTE | 2024-12-20 09:05 | MHC.OFFVIS ---
Vital Signs 12/20/24 09:14 Height 5 ft 8.5 in Weight 193 lb BMI 28.9 BP 111/73 Blood Pressure Location Rt brachial Position Sitting Pulse 71 Intake Visit Reasons: s/p gallbladder surgery Intake Note: Patient here s/p laparoscopic cholecystectomy. Patient c/o: tenderness along incisions. Removed steri strips. No longer taking rx pain meds. Surgery (): 12-12-2024 Taxi Servicer Required: No Accompanied by: Self / Same As Patient Allergies No Known Allergies Allergy (Verified 12/20/24 09:13) HPI HPI s/p gallbladder surgery: Details: Reports she is overall doing well. Initially had some pain and nausea after being discharged but starting last there was a noticed significant improvement. She does still have some pain at the epigastric port site but reports it is more like discomfort. Has been tolerating diet. Did have some constipation but has been trying to manage this with diet, increasing fiber and hydration. Has been avoiding heavy lifting, was able to go to her daughter's basketball game and states she was up on her feet for a long time and did well with this. [facility] Medical History (Updated 12/15/24 @ 00:02 by Rolly Connolly) Choledocholithiasis Surgical History (Updated 12/20/24 @ 08:29 by ZULEMA Rizzo) S/P laparoscopic cholecystectomy Hx of appendectomy History of ERCP Social History Household Members: Significant Other and Children Housing: House Patient Tobacco Use Status: Never used Tobacco service: No Physical Exam Vital Signs: Last Vital Signs Pulse 71 12/20/24 09:14 BP 111/73 12/20/24 09:14 BMI result Body Mass Index 28.9 Const General: comfortable and no acute distress Orientation/consciousness: patient oriented x3 GI Other: Incision sites intact, no surrounding erythema, no discharge. Mildly Tender to palpation at the umbilicus and epigastric site Inspection: No distended Palpation (GI): Soft to palpation and Tenderness to palpation present (GI) (Epigastric and umbilical incision) Neuro General: patient oriented x3 Assessment & Plan Assessment & Plan (1) S/P laparoscopic cholecystectomy: Code(s): Z90.49 - Acquired absence of other specified parts of digestive tract Category: Medical Plan 33-year-old female s/p laparoscopic cholecystectomy on 11/[address] Gutierrez returning to the office for routine follow up. Overall doing well. Has been improving over the past week. Continued to have some discomfort at the incision sites but not requiring pain medication. Tolerating ambulation. Tolerating regular diet initially had some constipation which he is trying to manage with dietary changes recommended continuing this, she can use Colace as needed. On exam the abdomen is soft and benign. Some mild tenderness at the incision sites. However the incision sites are not concerning for infection at this time. 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 We will continue activity restrictions for the next 3 weeks, no heavy lifting greater than 15-20 lb. She agrees to this. Recommended slowly advancing after the next 3 weeks to her baseline. At this point I do not believe she needs follow up with us again as she is young and otherwise healthy. She can follow up as needed with any questions or concerns in the future. Coding Level of Care Code Global (11582) Diagnoses S/P laparoscopic cholecystectomy Z90.49
[2024-12-20 09:14] VITALS: BP 111/73; PULSE 71; BMI 28.9
--- OUTSIDE RECORDS SUMMARY | 2024-12-20 10:06 | XMS_ITS | Clinical Summary ---
Author Organization [employer] Address [address] [facility] [address] [place] [address] Care Team Providers Care Regulatory Affairs Consultant Name Role Phone Unavailable Primary Care Provider Unavailabl e Allergies No known active allergies Medications Levonorgestrel 20 MCG/DAY intrauterine device 1 Each by Intrauterine route once. 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
--- OUTSIDE RECORDS SUMMARY | 2024-12-20 10:06 | XMS_ITS | Clinical Summary ---
Author Organization [facility] [address] [place] [address] [address] [place] [address] Phone Care Team Providers Care Circus Trainer Name Role Phone Abi Cronin MD Primary Care Provider [phone] Allergies No known active allergies Medications levonorgestreL (MIRENA) 21 mcg/24hr (up to 8 yrs) 52 mg IUD 1 Each by Intrauterine route once. 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 Encounters Date Type Department Care Team Description 12/09/2024 4:30 PM EDT Office Visit Adult Medicine [address] [phone] Yessica Saldivar PA Pneumonia of right middle lobe due to infectious organism (Primary Dx); Chest pain, unspecified type; Shortness of breath 12/08/2024 Telephone Adult Medicine [address] [phone] Abi Cronin MD from Last 3 Months Immunizations Immunization Administration Dates Next Due DTP 07/08/1995, 3,07/09/1991,05/10,03/08/1991 [id number] (Pentacel) 2mo to less than 5yo 04/05/1992,07/09/1991,05/10/1991,03/08 [...] * Cervical Cancer Screening: HPV (10/01/2016) Pathologist [facility] Cervical Cancer Screening: HPV No interpretation , Abstracted [facility] Provider HEALTH MAINTENANCE Final Result * HIV Screening (09/24/2016) [facility] HIV Screening Abstracted [facility] Provider HEALTH MAINTENANCE Final Result from Last 3 Months or Most Recently Relevant to Health Maintenance Insurance MEDICAID - [place] Care Teams Circus Trainer Relationship Specialty Start Date End Date Abi Cronin MD [address] [place] [id number] PCP - General Internal Medicine 11/02/20
== END 2024-12-20 09:28 | disposition home or self-care (01) ==
LOC: HO.HGS 09:03
PROVIDERS: PCP Internal Medicine
DX: Z90.49 Acquired absence of other specified parts of digestive tract (principal)
CPT/HCPCS: 99024

== ENCOUNTER → 2024-12-20 09:02 | Outpatient (BNVA) | payer MEDICAID, SELFPAY | PROVIDERS: PCP Internal Medicine | DX: Z90.49 Acquired absence of other specified parts of digestive tract (principal) | CPT/HCPCS: 99212 ==